=== PATIENT | female | born 1960 | race Caucasian/White ===

== ENCOUNTER → 2017-11-30 00:26 | Outpatient (CLI) | payer OTHER, MEDICARE, SELFPAY ==
--- NOTE | 2017-11-30 08:22 | DI.RPTCT_ITS ---
SYMPTOMS/DIAGNOSIS: PROFOUND WEIGHT LOSS, R63.4, ABD PAIN, R10.84 CT OF THE ABDOMEN AND PELVIS: Comparison is made with abdomen ultrasound dated . Images were performed from the lung bases through the ischial tuberosities after IV and oral contrast. There is artifact related to spinal hardware. The lung bases are clear. The liver, gallbladder, pancreas, adrenals and kidneys are unremarkable. The patient is status post splenectomy. The bladder appears normal. The uterus and ovaries have a postmenopausal appearance. Contrast is seen in small bowel and colon to the level of the splenic flexure. The descending and rectosigmoid colon are not yet opacified. There is a moderate quantity of stool in the descending and sigmoid colon. There is little surrounding fat. There is a question of diffuse wall thickening of the rectosigmoid. There is no evidence of a focal mass, adenopathy, free air or free fluid. IMPRESSION: Question of wall thickening of the rectosigmoid colon. There is limited evaluation due to lack of intra-abdominal fat and lack of contrast opacification.
[2017-11-30] MEDS: Omnipaque 350 MG/ML 100 ML BTL IJ (10:08)
[2017-11-30] MEDS: Omnipaque 350 MG/ML 50 ML BTL IJ (10:10)
[2017-11-30] MEDS: Breeza Beverage 473 ML BTL PO ×2 (10:11→10:12)
== END ==
PROVIDERS: PCP Family Medicine; Visit Provider Family Medicine
DX: R10.84 Generalized abdominal pain (principal); R63.4 Abnormal weight loss; K63.89 Other specified diseases of intestine; Z90.81 Acquired absence of spleen
CPT/HCPCS: 74177; J3490; Q9967

== ENCOUNTER → 2017-11-30 02:56 | Outpatient (CLI) | payer MEDICARE, OTHER, SELFPAY ==
[2017-11-30 13:17] LABS: Vitamin B12 > 1000 pg/mL (193-986)
== END ==
PROVIDERS: PCP Family Medicine; Visit Provider Family Medicine
DX: D51.9 Vitamin B12 deficiency anemia, unspecified (principal)
CPT/HCPCS: 36415; 82607

== ENCOUNTER 2018-01-20 14:06 | Outpatient (CLI) | payer MEDICARE, OTHER, SELFPAY ==
[2018-01-20 14:30] LABS: Absolute Basophil Count 0.03 k/cumm (0.0-0.2); Absolute Eosinophil Count 0.04 k/cumm (0.0-0.7); Absolute Lymphocyte Count 1.87 k/cumm (1.2-3.4); Absolute Monocyte Count 0.33 k/cumm (0.11-0.7); Absolute Neutrophil Count 2.44 k/cumm (1.2-6.7); Basophils % 0.6; Eosinophils % 0.8; HCT 39.8 % (36.0-46.0); HGB 13.1 g/dL (12.0-15.5); Lymphocytes % 39.7; Mean Corp. HGB Concentration 32.9 g/dL (32.0-36.0); Mean Corpuscular Hemoglobin 33.5 pg (27.0-33.0); Mean Corpuscular Volume 101.8 fL (80-95); Neutrophils % 51.9; Platelet Count 222 x1000/uL (130-400); RBC 3.91 m/cumm (4.00-5.20); RBC Distribution Width 14.8 % (11.7-14.6); White Blood Cell Count 4.71 k/cumm (4.4-10.8)
[2018-01-20 15:07] LABS: ESR 16 MM/HR (0-30)
[2018-01-20 15:24] LABS: ALT 17 U/L (12-78); AST 13 U/L (15-37); Albumin 3.7 g/dL (3.4-5.0); Alkaline Phosphatase 59 U/L (46-116); CREATININE 0.75 mg/dL (0.55-1.02)
== END 2018-01-20 14:26 ==
PROVIDERS: PCP Family Medicine; Visit Provider Internal Medicine Rheumatology
DX: M06.4 Inflammatory polyarthropathy (principal); Z79.899 Other long term (current) drug therapy
CPT/HCPCS: 36415; 85652; 82040; 82565; 84075; 84450; 84460; 85025; 86140

== ENCOUNTER 2018-04-26 01:23 | Outpatient (CLI) | payer MEDICARE, OTHER, SELFPAY ==
--- NOTE | 2018-04-26 13:00 | SATEXT_ITS ---
Assessment: Dorys presents for nutritional counseling for unintentional weight loss. She was 145 lbs 18 months ago. She reports that she also started Topomax 18 months ago for migraines. Her current weight is 87 lbs. She is 65. Her dietary recall shows that she eats toast or a bagel in the morning, then a grilled cheese, and for supper steak, potato, veggie. She snacks on ice cream, peanuts, and pistachios. She drinks one Ensure daily Her estimated energy needs for weight gain are 1200 kcals/day-1400 kcals/day based on 30-35 kcal/kg/day. Her estimated protein needs are 32g -40g/day based on 0.8-1.0 g/kg/day Nutritional Diagnosis: Underweight related to possible physiologic causes as well as a history of inadequate intake of calories as evidenced by BMI of 15 kg/m2 Intervention: We discussed ways to be sure she get 1200- 1400 kcals/day. Provided examples. Provided written materials on high calorie, high protein nutrition therapy. Encouraged Dorys to add one to two more Ensures to her day and/or other high calorie, high protein liquid nutrition. With regard to her unintentional weight loss that coincided with her starting Topomax, I suggested to her that she speak to her pharmacist or health care provider about the issue as weight loss can be a side effect of Topomax. I did say however, that medications were outside of my scope of practice. Monitoring and Evaluation: 1. Dorys will monitor her intake and her weight. She will evaluate her nutrition care plan accordingly. 2. She will follow up with me as needed. She has my contact information and is encouraged to check in with me with any questions or concerns regarding her nutrition therapy for underweight. Total time face to face: 20 minutes Thank you for the referral.
== END 2018-04-26 01:43 ==
PROVIDERS: PCP Family Medicine; Visit Provider Dietitian, Registered
DX: R63.4 Abnormal weight loss (principal); Z71.3 Dietary counseling and surveillance
CPT/HCPCS: 97802

== ENCOUNTER 2018-07-19 15:43 | Outpatient (CLI) | payer MEDICARE, OTHER, SELFPAY ==
[2018-07-19 16:09] LABS: Abs Immature Grans 0.01 k/cumm (0.0-0.09); Absolute Basophil Count 0.03 k/cumm (0.0-0.2); Absolute Eosinophil Count 0.04 k/cumm (0.0-0.7); Absolute Lymphocyte Count 2.32 k/cumm (1.2-3.4); Absolute Monocyte Count 0.24 k/cumm (0.11-0.7); Absolute Neutrophil Count 3.43 k/cumm (1.2-6.7); Basophils % 0.5; Eosinophils % 0.7; HCT 35.5 % (36.0-46.0); HGB 11.9 g/dL (12.0-15.5); Immature Grans % 0.2; Lymphocytes % 38.2; Mean Corp. HGB Concentration 33.5 g/dL (32.0-36.0); Mean Corpuscular Hemoglobin 34.5 pg (27.0-33.0); Mean Corpuscular Volume 102.9 fL (80-95); Mean Platelet Volume 9.8 fL (8.0-11.0); Neutrophils % 56.4; Platelet Count 269 x1000/uL (130-400); RBC 3.45 m/cumm (4.00-5.20); RBC Distribution Width 15.7 % (11.7-14.6); White Blood Cell Count 6.07 k/cumm (4.4-10.8)
[2018-07-19 17:03] LABS: ALT 15 U/L (12-78); AST 15 U/L (15-37); Albumin 3.4 g/dL (3.4-5.0); Alkaline Phosphatase 58 U/L (46-116); Anion Gap 9.4 mmol/L (3-11); BUN 8 mg/dL (7-18); Bilirubin, Total 0.3 mg/dL (0.2-1.0); C-Reactive Protein 0.49 mg/dL (0.0-0.3); CO2 26.6 mmol/L (21.0-32.0); CREATININE 0.76 mg/dL (0.55-1.02); Calcium 8.9 mg/dL (8.5-10.1); Chloride 109 mmol/L (98-107); Glucose 84 mg/dL (70-100); Potassium 4.3 mmol/L (3.5-5.1); Sodium 145 mmol/L (136-145); Total Protein 6.7 g/dL (6.4-8.2)
== END 2018-07-19 16:03 ==
PROVIDERS: PCP Family Medicine; Visit Provider Internal Medicine Rheumatology
DX: M06.4 Inflammatory polyarthropathy (principal); Z79.899 Other long term (current) drug therapy
CPT/HCPCS: 36415; 80053; 85025; 86140

== ENCOUNTER 2019-01-27 02:45 | Outpatient (CLI) | payer MEDICARE, OTHER, SELFPAY ==
[2019-01-27 13:04] LABS: Abs Immature Grans 0.01 k/cumm (0.0-0.09); Absolute Basophil Count 0.03 k/cumm (0.0-0.2); Absolute Eosinophil Count 0.13 k/cumm (0.0-0.7); Absolute Lymphocyte Count 1.92 k/cumm (1.2-3.4); Absolute Monocyte Count 0.52 k/cumm (0.11-0.7); Absolute Neutrophil Count 2.98 k/cumm (1.2-6.7); Basophils % 0.5; Eosinophils % 2.3; HCT 38.4 % (36.0-46.0); HGB 12.6 g/dL (12.0-15.5); Immature Grans % 0.2; Lymphocytes % 34.3; Mean Corp. HGB Concentration 32.8 g/dL (32.0-36.0); Mean Corpuscular Volume 103.5 fL (80-95); Monocytes % 9.3; Neutrophils % 53.4; Platelet Count 258 x1000/uL (130-400); RBC 3.71 m/cumm (4.00-5.20); White Blood Cell Count 5.59 k/cumm (4.4-10.8)
[2019-01-27 13:21] LABS: ALT 10 U/L (14-59); AST 13 U/L (15-37); Albumin 3.3 g/dL (3.4-5.0); Alkaline Phosphatase 57 U/L (46-116); Anion Gap 5.6 mmol/L (3-11); BUN 9 mg/dL (7-18); Bilirubin, Total 0.3 mg/dL (0.2-1.0); C-Reactive Protein 0.28 mg/dL (0.0-0.3); CO2 31.4 mmol/L (21.0-32.0); CREATININE 0.79 mg/dL (0.55-1.02); Calcium 8.7 mg/dL (8.5-10.1); Chloride 105 mmol/L (98-107); Glucose 79 mg/dL (70-100); Potassium 4.4 mmol/L (3.5-5.1); Sodium 142 mmol/L (136-145); Total Protein 6.8 g/dL (6.4-8.2)
== END 2019-01-27 03:05 ==
PROVIDERS: PCP Family Medicine; Visit Provider Internal Medicine Rheumatology
DX: M06.4 Inflammatory polyarthropathy (principal); Z79.899 Other long term (current) drug therapy
CPT/HCPCS: 36415; 80053; 85025; 86140

== ENCOUNTER 2019-06-22 13:34 | Outpatient (CLI) | payer MEDICARE, OTHER, SELFPAY ==
[2019-06-22 14:00] LABS: Absolute Basophil Count 0.03 k/cumm (0.0-0.2); Absolute Eosinophil Count 0.05 k/cumm (0.0-0.7); Absolute Lymphocyte Count 2.07 k/cumm (1.2-3.4); Absolute Monocyte Count 0.33 k/cumm (0.11-0.7); Absolute Neutrophil Count 2.91 k/cumm (1.2-6.7); Basophils % 0.6; Eosinophils % 0.9; HCT 39.4 % (36.0-46.0); HGB 13.1 g/dL (12.0-15.5); Lymphocytes % 38.4; Mean Corp. HGB Concentration 33.2 g/dL (32.0-36.0); Mean Corpuscular Hemoglobin 33.5 pg (27.0-33.0); Mean Corpuscular Volume 100.8 fL (80-95); Mean Platelet Volume 9.6 fL (8.0-11.0); Monocytes % 6.1; Platelet Count 264 x1000/uL (130-400); RBC 3.91 m/cumm (4.00-5.20); RBC Distribution Width 15.1 % (11.7-14.6); White Blood Cell Count 5.39 k/cumm (4.4-10.8)
[2019-06-22 14:56] LABS: ALT 16 U/L (14-59); AST 20 U/L (15-37); Albumin 3.7 g/dL (3.4-5.0); Alkaline Phosphatase 53 U/L (46-116); BUN 10 mg/dL (7-18); Bilirubin, Total 0.4 mg/dL (0.2-1.0); C-Reactive Protein 0.28 mg/dL (0.0-0.3); CREATININE 0.81 mg/dL (0.55-1.02); Calcium 9.3 mg/dL (8.5-10.1); Chloride 102 mmol/L (98-107); Glucose 92 mg/dL (74-106); Potassium 4.1 mmol/L (3.5-5.1); Sodium 140 mmol/L (136-145); Total Protein 7.1 g/dL (6.4-8.2)
== END 2019-06-22 13:54 ==
PROVIDERS: PCP Family Medicine; Visit Provider Internal Medicine Rheumatology
DX: M06.4 Inflammatory polyarthropathy (principal); Z79.899 Other long term (current) drug therapy
CPT/HCPCS: 36415; 80053; 85025; 86140

== ENCOUNTER 2020-01-10 09:12 | Outpatient (CLI) | payer MEDICARE, OTHER, SELFPAY ==
[2020-01-10 12:51] LABS: Abs Immature Grans 0.01 10^3/uL (0.0-0.06); Absolute Basophil Count 0.06 10^3/uL (0.0-0.2); Absolute Eosinophil Count 0.07 10^3/uL (0.0-0.7); Absolute Monocyte Count 0.44 10^3/uL (0.1-0.8); Absolute Neutrophil Count 2.79 10^3/uL (1.2-6.7); Basophils % 1.3; Eosinophils % 1.5; HCT 40.6 % (36.0-46.0); HGB 13.5 g/dL (11.2-15.7); Immature Grans % 0.2; Lymphocytes % 27.8; MCH 33.3 pg (27.0-33.0); MCHC 33.3 % (32.0-36.0); MCV 100.2 fL (80-95); Monocytes % 9.4; Neutrophils % 59.8; Nucleated RBC 0 %; Platelet Count 276 10^3/uL (130-400); RBC 4.05 10^6/uL (3.93-5.22); RDW 15.4 % (11.7-14.6); WBC 4.67 10^3/uL (4.4-10.8)
[2020-01-10 13:02] LABS: ALT 17 U/L (14-59); AST 17 U/L (15-37); Albumin 3.7 g/dL (3.4-5.0); Alkaline Phosphatase 57 U/L (46-116); Anion Gap 5.4 mmol/L (3-11); BUN 15 mg/dL (7-18); Bilirubin, Total 0.4 mg/dL (0.2-1.0); C-Reactive Protein 0.21 mg/dL (0.0-0.3); CO2 32.6 mmol/L (21.0-32.0); CREATININE 0.84 mg/dL (0.55-1.02); Calcium 9.4 mg/dL (8.5-10.1); Chloride 101 mmol/L (98-107); Glucose 109 mg/dL (74-106); Potassium 3.5 mmol/L (3.5-5.1); Sodium 139 mmol/L (136-145); Total Protein 7.5 g/dL (6.4-8.2)
== END 2020-01-10 09:32 ==
PROVIDERS: PCP Family Medicine; Visit Provider Internal Medicine Rheumatology
DX: M06.4 Inflammatory polyarthropathy (principal); Z79.899 Other long term (current) drug therapy
CPT/HCPCS: 36415; 80053; 85025; 86140

== ENCOUNTER 2020-02-07 08:27 | Outpatient (CLI) | payer MEDICARE, OTHER, SELFPAY ==
[2020-02-09 16:44] LABS: Patient Race White; SARS-CoV-2 RNA Undetected (Undetected); SARS-CoV-2 Specimen Source Nasal
== END 2020-02-07 08:47 ==
PROVIDERS: PCP Family Medicine; Visit Provider Family Medicine
DX: Z20.828 Contact with and (suspected) exposure to other viral communicable diseases (principal)
CPT/HCPCS: U0003

== ENCOUNTER 2020-02-28 17:09 | Outpatient (CLI) | payer MEDICARE, OTHER, SELFPAY ==
--- NOTE | 2020-02-28 08:00 | DI.RAD_ITS ---
EXAM: XR CHEST 2V PA LATERAL CLINICAL HISTORY: smoker/ABNL wgt loss,R63.4 TECHNIQUE: 2D digital imaging was performed. COMPARISON: CR CHEST 2 VIEWS PA,LAT from 08/14/2010 FINDINGS: MEDIASTINUM: Normal. HEART: Normal. PULMONARY VASCULATURE: Normal. LUNGS: Clear. Hyperinflated lungs suggesting underlying COPD. PLEURAL SPACE: No pleural effusion or pneumothorax. BONE:Within normal limits for the patient's age. Stable right convex thoracic scoliosis. Stable sin gle orthopedic zita spanning the thoracic and lumbar spine. OTHER FINDINGS:Stable nerve stimulating device in the thoracic spine. Surgical clips are again seen in the left upper quadrant of the abdomen. IMPRESSION: No acute pulmonary findings. DATA REPOSITORY: RADIATION DOSE DELIVERED:
== END 2020-02-28 17:29 ==
PROVIDERS: PCP Family Medicine; Visit Provider Family Medicine
DX: R63.4 Abnormal weight loss (principal); F17.210 Nicotine dependence, cigarettes, uncomplicated
CPT/HCPCS: 71046

== ENCOUNTER 2020-03-20 14:40 | Observation (INO) | payer MEDICARE, OTHER, SELFPAY ==
[2020-03-20] VITALS (69 sets, daily range): BP systolic 84–165; BP diastolic 58–150; PULSE 68–132; RESP 1–28; TEMP 36.3–36.5; O2SAT 91–100
--- NOTE | 2020-03-20 15:00 | RT.EKG_ITS ---
APPROVED REPORT Exam: Resting ECG Patient Location: E HR:91 bpm ECG Measurements Heart Rate 91 AXIS MN 139 P 77 QRSd 80 QRS 84 QT 406 T 58 QTc 500 Conclusion Sinus rhythm...normal P axis, V-rate 60- 99 Left ventricular hypertrophy...multiple voltage criteria Anterior infarct, old...Q >40mS, abnormal ST-T, V2-V5. 2mm ST elevation in V3? I have reviewed and interpreted ECG and agree with software generated interpretation.
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
[2020-03-20 16:37] LABS: Abs Immature Grans 0.03 10^3/uL (0.0-0.06); Absolute Basophil Count 0.04 10^3/uL (0.0-0.2); Absolute Lymphocyte Count 1.87 10^3/uL (1.2-3.4); Absolute Monocyte Count 0.51 10^3/uL (0.1-0.8); Absolute Neutrophil Count 5.36 10^3/uL (1.2-6.7); Basophils % 0.5; HCT 41.1 % (36.0-46.0); HGB 14.2 g/dL (11.2-15.7); Immature Grans % 0.4; Lactate 1.7 mmol/L (0.6-1.4); Lymphocytes % 23.9; MCH 33.1 pg (27.0-33.0); MCHC 34.5 % (32.0-36.0); MCV 95.8 fL (80-95); MPV 10.1 fL (8.0-11.0); Monocytes % 6.5; Neutrophils % 68.7; Nucleated RBC 0 %; Platelet Count 276 10^3/uL (130-400); RBC 4.29 10^6/uL (3.93-5.22); RDW-SD 48.3 fL; WBC 7.81 10^3/uL (4.4-10.8)
[2020-03-20 16:50] LABS: INR 1.2 (0.9-1.1); PTT Activated 25.6 sec (21.0-27.5); Prothrombin Time 11.8 sec (9.3-11.0)
--- NOTE | 2020-03-20 17:00 | DI.CT_ITS ---
EXAM: CT CHEST PE ABD PELVIS W CLINICAL HISTORY: cough, sob, weight loss TECHNIQUE: CT examination of the chest, abdomen, and pelvis was performed utilizing intravenous inf usion of 100 cc of Omnipaque 350. FINDINGS: Note is made of spinal fixation hardware in the thoracolumbar region and lumbosacral junction and the re is a spinal stimulator in place in the lumbar region as well. There is a moderate biconvex thorac olumbar scoliosis. There are changes of pulmonary scarring most marked in the right middle lobe. Lungs are otherwise pr edominantly clear. Minimal patchy ground-glass opacities in right lung base, nonspecific, acute vers us chronic.. No pleural effusion. No pleural based mass. No mediastinal or hilar adenopathy. No axillary or supraclavicular adenopathy. Tracheobronchial anatoliy e appears intact. No evidence of pulmonary embolic disease. Unremarkable appearance of thoracic aorta and major branch vessels except for moderate calcific atheromatous changes.. The liver appears normal with no focal hepatic lesion identified. Spl prior splenectomy noted. Pancreas appears intact. Adrenals appear normal. There is bilateral nonobstructing nephrolithiasis. There is an apparent small simple cyst of the rig ht kidney. No evidence of urinary tract obstruction.. Distal abdominal aorta is not ideally visualized due to artifact from spinal hardware, however there appears to have been an aorto bi femoral graft. Proximal right and left grafts are poorly visualized but there is grossly intact flow through this region and into the common femoral arteries bilaterall y. Appearance is similar to appearance on prior CT of November 2017. No focal bowel pathology. Appendix is normal. There appears to be significant wall thickening of th e rectosigmoid raising the possibility of colitis. No evidence of obstruction. Moderate quantity of fecal material throughout the colon.. No abdominal or pelvic adenopathy. No significant abdominal wall hernia. IMPRESSION: Wall thickening of the distal colon as described above, suspicious for colitis. No additional focal acute finding. RADIATION DOSE DELIVERED: 622.72mGy.cm Total DLP 622.72mGy.cm Total DLP
[2020-03-20 17:05] LABS: ALT 12 U/L (14-59); AST 26 U/L (15-37); Albumin 3.5 g/dL (3.4-5.0); Alkaline Phosphatase 50 U/L (46-116); Anion Gap 6.5 mmol/L (3-11); BUN 21 mg/dL (7-18); Bilirubin, Total 0.7 mg/dL (0.2-1.0); CO2 28.5 mmol/L (21.0-32.0); CREATININE 0.91 mg/dL (0.55-1.02); Calcium 9.3 mg/dL (8.5-10.1); Chloride 100 mmol/L (98-107); Glucose 109 mg/dL (74-106); Magnesium 1.9 mg/dL (1.8-2.4); Potassium 4.4 mmol/L (3.5-5.1); Sodium 135 mmol/L (136-145); Total Protein 7.7 g/dL (6.4-8.2)
[2020-03-20 17:09] LABS: Troponin I 0.62 ng/mL (<0.06)
[2020-03-20] MEDS: Normal Saline Flush 10 ML SYR IVP (18:33)
[2020-03-20] MEDS: Omnipaque 350 MG/ML 100 ML BTL IJ (18:34)
[2020-03-20] MEDS: Normal Saline - Diluent 50 ML VIAL IV (18:34)
--- NOTE | 2020-03-20 18:45 | RT.EKG_ITS ---
APPROVED REPORT Exam: Resting ECG Patient Location: E HR:79 bpm ECG Measurements Heart Rate 79 AXIS NC 153 P 79 QRSd 75 QRS 82 QT 426 T 79 QTc 490 Conclusion Sinus rhythm...normal P axis, V-rate 60- 99 Probable left atrial enlargement...P >50mS, <-0.10mV V1 Left ventricular hypertrophy...multiple voltage criteria I have reviewed and interpreted ECG and agree with software generated interpretation.
[2020-03-20] MEDS: Albuterol/Ipratropium 3 ML UPD VIAL UPD ×2 (18:51→21:11)
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
[2020-03-20 20:26] LABS: Troponin I 0.56 ng/mL (<0.06)
[2020-03-20] MEDS: Aspirin 325 MG TAB PO (20:43)
[2020-03-20] MEDS: Clopidogrel 300 MG TAB PO (20:43)
[2020-03-20] MEDS: diazePAM 5 MG TAB PO (23:02)
[2020-03-20] MEDS: traZODone 50 MG TAB PO (23:02)
[2020-03-20] MEDS: oxyCODONE 5 mg/Acetaminophen 325 mg TAB 1 TAB PO (23:12)
[2020-03-21] VITALS (30 sets, daily range): BP systolic 107–149; BP diastolic 56–108; PULSE 60–78; RESP 8–27; TEMP 36.3–36.5; O2SAT 93–98
[2020-03-21 04:40] LABS: PTT Activated 57.7 sec (21.0-27.5)
[2020-03-21] MEDS: oxyCODONE 5 mg/Acetaminophen 325 mg TAB 1 TAB PO ×3 (06:21→18:59)
[2020-03-21 06:42] LABS: Troponin I 0.45 ng/mL (<0.06)
[2020-03-21] MEDS: Lactobacillus Acidophilus CAP 1 CAP PO (07:48)
[2020-03-21] MEDS: clonazePAM 0.5 MG TAB 0.25 MG PO (07:48)
[2020-03-21] MEDS: Venlafaxine 37.5 MG CAPCR 75 MG PO (07:48)
[2020-03-21] MEDS: Folic Acid 1 MG TAB 2 MG PO (07:48)
[2020-03-21] MEDS: Metoprolol CR 100 MG TABCR PO (07:48)
[2020-03-21 09:27] LABS: NT-proBNP 1158 pg/mL (<300)
--- NOTE | 2020-03-21 10:13 | PDOC.CMIN ---
- If Service Date Differs Date of service: 03/21/20 Time of Service: 10:13 Care Management Initial Assess REASON FOR HOSPITALIZATION:: Chest Pain PAST MEDICAL HISTORY/PAST SURGICAL HISTORY:: Medical History. Elevated Triponin, chronic chest pain, dyspnea on exertion, chest pain on exertion, abnormal weight loss, insomnia, migraine, tobacco use disorder, neck pain, lumbago, IBS, idiopathic scoliosis, fatigue, discoid lupus erythematosus, depressive disorder, chronic pain syndrome, B12 deficiency. Abnormal Pap smear of anus. + HPV. Albarran-Marco A syndrome. Vaginal high risk HPV DNA test positive. Surgical History. History of orthopedic surgery. History of splenectomy. SPIN DEVICE. Chu Ananth, 1980; 2003 ananth placed; bone graft L4-5. Splenomegaly (~1999). ITP PREVIOUS FUNCTIONAL STATUS/SOCIAL/FAMILY SUPPORTS:: Dorys lives in [place] with her , Dyllan. 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 She has three children, only one of which lives nearby. She has one five year old grandchild, who she would like to spend more time with, but due to Covid 19, she has not been able to recently. She is independent at baseline. CURRENT FUNCTIONAL STATUS:: Dorys was sitting up in bed when CM met with her. She stated that she was ok. She had just met with the Business Excellence Leader, who recommended that she be transferred for cardiac catheterization, which will likely happen tomorrow. She is agreeable to transfer. She was pleasant and forthcoming with information. CM will continue to follow. ADVANCE DIRECTIVES:: None on file. Dorys stated that she has filled them out, and has Dyllan, her , listed as agent. Has patient been provided with info about the portal/API?: Yes Did the patient sign up for the portal?: Yes (previously signed up) CODE STATUS:: Full Code INSURANCE COVERAGE / FINANCIAL ISSUES:: MCR, MVP CURRENT HOME/COMMUNITY SERVICES/EQUIPMENT:: No current equipment or services in the community. PRIMARY CARE PHYSICIAN:: Benny Resendez POTENTIAL DISCHARGE NEEDS:: Evaluations for further needs, follow up appointments PATIENT/FAMILY EDUCATION NEEDS:: Review discharge instructions regarding activity levels and medications, discussion of self care needs including ask me three. ANTICIPATED BARRIERS TO DISCHARGE:: None identified at this time. TRANSPORTATION:: Via private vehicle by family. PLAN:: Dorys continues to be monitored at ICU level of care. Anticipate Dorys will return home once medically cleared. She will be driven home by her via private vehicle. She will follow up with her PCP and discharge plan of care. CM will continue to follow.
--- NOTE | 2020-03-21 10:31 | PHA.REVIEW ---
Pharmacy Admission Review - Admission Clinical Review (Last Reviewed 03/20/20 @ 20:07 by Maninder Castillo MD) Elevated troponin (Acute) Chronic chest pain (Acute) Dyspnea on exertion (Acute) Chest pain on exertion (Acute) bupropion Allergy (Intermediate, Verified 03/13/20 14:11) Hives citalopram Allergy (Intermediate, Verified 03/13/20 14:11) verapamil Allergy (Intermediate, Verified 03/13/20 14:11) Hives Corticosteroids (Glucocorticoids) Adverse Reaction (Verified 03/13/20 14:11) Sulfa (Sulfonamide Antibiotics) Adverse Reaction (Verified 03/13/20 14:11) Height 5 ft 4.17 in Weight 36.3 kg - Comments Comments/Follow Ups: Treating as NSTEMI -- ASA, plavix, and heparin gtt given; patient does have a history of COPD only requiring albuterol per external pharmacy records - duonebs ordered PRN; cardio consult today; BMI of 13.7 - Renal Dosing Renal Dosing: BUN 21 mg/dL (7-18) H 03/20/20 16:27 Creatinine 0.91 mg/dL (0.55-1.02) 03/20/20 16:27 Medications needing adjustments: Reviewed List of meds needing interventions: eCrCl 37.6ml/min - current orders ok - Anticoagulation Anticoagulation: Hgb 14.2 g/dL (11.2-15.7) 03/20/20 16:27 Hct 41.1 % (36.0-46.0) 03/20/20 16:27 Plt Count 276 10^3/uL (130-400) 03/20/20 16:27 INR 1.2 (0.9-1.1) H 03/20/20 16:27 Creatinine 0.91 mg/dL (0.55-1.02) 03/20/20 16:27 DVT Prohphylaxis: Reviewed Therapeutic Anticoagulation: Reviewed Medications: Heparin - Opiate Usage Evaluate Pain Scale/Pains Meds: Reviewed (oxy/apap 5-325 PRN) Scheduled Bowel Reg ordered if on Opiates?: No - Relevant Labs Sodium 135 mmol/L (136-145) L 03/20/20 16:27 Potassium 4.4 mmol/L (3.5-5.1) 03/20/20 16:27 Chloride 100 mmol/L (98-107) 03/20/20 16:27 Magnesium 1.9 mg/dL (1.8-2.4) 03/20/20 16:27 Electrolytes, C-Reactive P, ESR: Reviewed - DM Control DM Control: Glucose 109 mg/dL (74-106) H 03/20/20 16:27 Insulin Dosing: N/A - Heart Failure/NV Heart Failure/NV: Troponin I 0.45 ng/mL (<0.06) H* 03/21/20 06:15 NT-Pro-B Natriuret Pep 1158 pg/mL (<300) H 03/21/20 06:15 EF%, NINI's, B-Blockers, Diuretics: Reviewed (Metoprolol Succ 100mg daily) - BP Control BP Control: Blood Pressure 149/82 Blood Pressure 119/56 Blood Pressure 107/69 Blood Pressure 120/67 Blood Pressure 120/76 Blood Pressure 118/64 - Qtc Review If Elevated: Reviewed List meds needing interventions: QTc 500 on admission - caution of new orders that could prolong QT - IV to PO Switch IV Medications: Reviewed - Home Meds Home Med List reviewed: Reviewed Relevent Home Meds Not ordered & why?: Vit D, all others ordered - Current meds Current Medication Order Review: Intervened (Venlafaxine was changed to ER but should be IR tablet per review of pharmacy records - changed order accordingly)
[2020-03-21 10:52] LABS: Source Nasopharynx
[2020-03-21 11:51] LABS: COVID-19 PCR Negative (Negative); Influenza A PCR Negative (Negative); Influenza B PCR Negative (Negative); RSV PCR Negative (Negative)
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
--- NOTE | 2020-03-21 15:33 | DI.US_ITS ---
APPROVED REPORT EXAM: Comprehensive 2D, Doppler, and color-flow Echocardiogram Patient Location: In-Patient Room/Bed: [id number] Research Intern: Oneida Mack RDCS (AE) Indications: Chest pain, Elevated troponin, SOB Other Information Technically limited study due to body habitus. Conclusion Technically difficult study Concentric left ventricular hypertrophy estimated ejection fraction 55 to 60%. No segmental wall mot ion abnormalities were identified Right ventricle grossly normal in size, unable to assess systolic function The left atrium is mildly dilated. The right atrium is normal in size There are no structural or hemodynamically significant valvular abnormalities Wall motion Left Ventricle The left ventricle is normal size. The left ventricular systolic function is normal. The left ventric ular ejection fraction is within the normal range. Moderate concentric left ventricular hypertrophy. There is normal LV segmental wall motion. There is no ventricular septal defect visualized. LVEF is 5 5-60%. Right Ventricle Ventricle appears grossly normal in size Right ventricular systolic function could not be assessed. T he RVSP is 23.2mmHg. Atria Left atrium is mildly dilated. The right atrium size is normal. The interatrial septum is intact with no evidence for an atrial septal defect. Aortic Valve The aortic valve is normal in structure. Aortic valve is trileaflet. There is no aortic valvular sten osis. No aortic regurgitation is present. Mitral Valve The mitral valve is normal in structure. No evidence of mitral valve stenosis. Trace mitral regurgita tion. Tricuspid Valve The tricuspid valve is normal in structure. There is no tricuspid valve stenosis. Mild tricuspid regu rgitation. Pulmonic Valve The pulmonary valve is normal in structure. There is no pulmonic valvular stenosis. There is no pulmo michele valvular regurgitation. Great Vessels The aortic root is normal in size. Ascending aorta is not well visualized. Aortic arch is not well vi sualized. IVC is normal in size and collapses >50% with inspiration. Pericardium There is no pericardial effusion. 2D Dimensions IVSD d PLAX 1.11 cm F: 0.6-1.0 LV Vol A2C d MOD 66.7 mL LVPW d PLAX 1.11 cm F: 0.6 - 1.0 LV Vol A4C d MOD 58.8 mL LVID d PLAX 3.51 cm F: 3.8 - 5.2 LA vol/ BSA A4C s A-L 39.7 mL/m2 LVDs 2.50 cm F: 2.2 - 3.5 LA Area A4C s MOD 18.22 cm2 Ao Root d 2.59 cm F: 2.7 - 3.3 LV EF A4C MOD 49.6 % RA Area A4C 7.96 cm2 LV EF A2C MOD 53.6 % RA Vol/ BSA A4C s A-L 11.3 mL/m2 LV EF Biplane MOD 48.7 % LV EF Teichholz 56.0 % SV 30.69 mL LVEF (Gomes's) 48.69 % F: 54 - 74 SV Index 23.16 mL/m2 LV Volume 55.30 mL F: 46 - 106 LV Volume Index 41.89 mL/m2 F: 29 - 61 LV Vol Biplane MOD 63.0 mL FS 28.45 % LV Diastology MV E' medial 0.053 (>0.07 m/s) E/A Ratio 1.0 LV E/e MED 12.00 (<14) MV E Vmax 0.64 (0.4-1.3 m/s) MV E' lateral 0.055 (>0.1 m/s) MV A Vmax 0.65 (0.4-1.3 m/s) LV E/e LAT 11.45 (<14) MV E/A Ratio 0.91 MV E/E' medial 12.00 MV E/E' lateral 11.47 Aortic Valve LVOT Area 2.99 cm2 AoV Area Vmax 2.45 cm2 LVOT Vmax 1.01 m/s AoV Area/ BSA (Vmax) 1.85 cm2/m2 LVOT Mean Nikunj. 0.65 m/s ERWIN Mean Nikunj. 2.09 cm2 LVOT Peak Grad 4.1 mmHg ERWIN Mean Nikunj. Index 1.58 cm2/m2 LVOT Mean Grad 2.0 mmHg LVOT VTI 0.180 m LVOT Diam s 1.95 cm AoV Vmax 1.23 m/s Velocity Ratio 0.82 AoV Mean Nikunj. 0.93 m/s AoV Peak Grad 6.1 mmHg LVOT SV 53.68 mL AoV Mean Grad 3.8 mmHg AoV VTI 0.231 m AoV Area VTI 2.32 cm2 AoV Area/ BSA (VTI) 1.75 cm/m2 Mitral Valve MV DT 235 (160-240 msec) MV PHT 68 msec MV Area PHT 3.23 cm2 Pulmonary Valve PV Vmax 0.93 (0.5-1.5 m/s) RVOT Peak Gr. 2.59 mmHg PV Peak Grad 3.5 mmHg RVOT Mean Gr. 1.20 mmHg PV Mean Grad 1.8 mmHg RVOT VTI 0.162 m PV VTI 0.200 m RVOT Vmax 0.80 m/s Tricuspid Valve TR Peak Grad 20.2 mmHg TR Vmax 2.25 m/s RA Pressure 3.00 mmHg RVSP (TR) 23.2 mmHg
--- NOTE | 2020-03-21 15:38 | W.PM.PROGNOT ---
Date of Service Date of service: 03/21/20 Time of Service: 15:39 Assessment and Plan Assessment and plan (1) Elevated troponin: Status: Acute Assessment and plan: Cardiology evaluation appreciated. She has been accepted at [facility] when bed available for cardiac catheterization. Planned transfer tomorrow. If bed should become unavailable, OK to proceed with stress testing here tomorrow. Echocardiogram performed; reading pending. (2) Chest pain on exertion: Status: Acute Assessment and plan: Has a component of chronic CP. Now with waxing and waning pain. Will try a nitro SL if pain is 5/10 or greater. (3) Abnormal weight loss: Status: Acute Assessment and plan: Unclear etiology. Outpt w/u IBS with constipation may be a large factor. Was doing better and eating well when on Linzesse but it is not covered by her insurance. (4) Tobacco use disorder: Status: Chronic Assessment and plan: Offer nicotine replacement should she desire. Subjective Subjective Patient reports: no new complaints, still having pain (central CP of 3-5/10.), tolerating a regular diet and afebrile; denies nausea, vomiting and shortness of breath Exam Const General: cooperative and no acute distress Nutritional Appearance: cachectic Orientation: alert and oriented x3 Resp Effort & Inspection: normal respiratory effort Auscultation: clear to auscultation bilaterally Cardio Rate: regular rate Rhythm: regular rhythm Heart Sounds: S1 normal and S2 normal GI Palpation: soft and nontender Auscultation: normal bowel sounds Extrem General: no pedal edema and no calf tenderness Objective Last Vital Signs Temp 36.3 C L 03/21/20 12:45 Pulse 66 03/21/20 14:00 Resp 15 03/21/20 15:00 BP 146/108 H 03/21/20 14:00 Pulse Ox 97 03/21/20 15:00 Laboratory Results - last 24 hr 03/20/20 03/20/20 03/20/20 16:27 16:27 16:27 WBC 7.81 RBC 4.29 Hgb 14.2 Hct 41.1 MCV 95.8 H MCH 33.1 H MCHC 34.5 RDW 14.0 Plt Count 276 MPV 10.1 Immature Gran % 0.4 Neutrophils % 68.7 Lymphocytes % 23.9 Monocytes % 6.5 Eosinophils % 0.0 Basophils % 0.5 Nucleated RBC % 0 Absolute Neutrophils 5.36 Absolute Lymphocytes 1.87 Absolute Monocytes 0.51 Absolute Eosinophils 0.00 Absolute Basophils 0.04 PT INR APTT VBG Lactate 1.7 H Sodium 135 L Potassium 4.4 Chloride 100 Carbon Dioxide 28.5 Anion Gap 6.5 BUN 21 H Creatinine 0.91 Estimated GFR/1.73 m2 >= 60.00 Glucose 109 H Calcium 9.3 Magnesium 1.9 Total Bilirubin 0.7 AST 26 ALT 12 L Alkaline Phosphatase 50 Troponin I 0.62 H* NT-Pro-B Natriuret Pep Total Protein 7.7 Albumin 3.5 COVID-19 Source COVID-19 PCR Influenza Type A (PCR) Influenza Type B (PCR) RSV (PCR) 03/20/20 03/20/20 03/21/20 16:27 19:36 04:00 WBC RBC Hgb Hct MCV MCH MCHC RDW Plt Count MPV Immature Gran % Neutrophils % Lymphocytes % Monocytes % Eosinophils % Basophils % Nucleated RBC % Absolute Neutrophils Absolute Lymphocytes Absolute Monocytes Absolute Eosinophils Absolute Basophils PT 11.8 H INR 1.2 H APTT 25.6 57.7 H D VBG Lactate Sodium Potassium Chloride Carbon Dioxide Anion Gap BUN Creatinine Estimated GFR/1.73 m2 Glucose Calcium Magnesium Total Bilirubin AST ALT Alkaline Phosphatase Troponin I 0.56 H* NT-Pro-B Natriuret Pep Total Protein Albumin COVID-19 Source COVID-19 PCR Influenza Type A (PCR) Influenza Type B (PCR) RSV (PCR) 03/21/20 03/21/20 03/21/20 06:15 06:15 10:40 WBC RBC Hgb Hct MCV MCH MCHC RDW Plt Count MPV Immature Gran % Neutrophils % Lymphocytes % Monocytes % Eosinophils % Basophils % Nucleated RBC % Absolute Neutrophils Absolute Lymphocytes Absolute Monocytes Absolute Eosinophils Absolute Basophils PT INR APTT VBG Lactate Sodium Potassium Chloride Carbon Dioxide Anion Gap BUN Creatinine Estimated GFR/1.73 m2 Glucose Calcium Magnesium Total Bilirubin AST ALT Alkaline Phosphatase Troponin I 0.45 H* NT-Pro-B Natriuret Pep 1158 H Total Protein Albumin COVID-19 Source Nasopharynx COVID-19 PCR Negative Influenza Type A (PCR) Negative Influenza Type B (PCR) Negative RSV (PCR) Negative
[2020-03-21] MEDS: traZODone 50 MG TAB PO (19:00)
[2020-03-21 19:13] LABS: Vitamin D 25 Total 56.7 ng/ml (30-100)
[2020-03-21] MEDS: diazePAM 5 MG TAB PO (20:01)
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
[2020-03-21 23:55] LABS: COVID-19 RT-PCR UVMMC Result Negative (Negative)
== END 2020-03-21 20:31 | disposition short-term general hospital (02) ==
LOC: ER 20:39 → ICU 21:43
PROVIDERS: Family Medicine; Admitting Provider General Practice; Emergency Provider Physician Assistant; PCP Family Medicine; Visit Provider General Practice
DX: I21.4 Non-ST elevation (NSTEMI) myocardial infarction (principal); R63.4 Abnormal weight loss; Z68.1 Body mass index [BMI] 19.9 or less, adult; M32.9 Systemic lupus erythematosus, unspecified; L51.1 Stevens-Johnson syndrome; F17.210 Nicotine dependence, cigarettes, uncomplicated; K58.1 Irritable bowel syndrome with constipation
CPT/HCPCS: 36415; 71275; 74177; 80053; 82306; 93005; 94640; 99222; 99225; 99239; 99253; 99285; U0003; 83605; 83735; 83880; 84484; 85025; 85610; 85730; 93010; 93306; 99217; 99219; G0378; J3490; J7620

== ENCOUNTER → 2020-03-21 09:53 | Outpatient (BNVA) | payer MEDICARE, OTHER, SELFPAY | PROVIDERS: PCP Family Medicine; Referring Provider Family Medicine; Visit Provider Internal Medicine Cardiovascular Disease | DX: R69 Illness, unspecified (principal) ==

== ENCOUNTER 2020-08-29 02:13 | Outpatient (CLI) | payer OTHER, SELFPAY ==
[2020-08-29 11:22] LABS: HCT 41.2 % (36.0-46.0); HGB 13.3 g/dL (11.2-15.7); MCH 32.6 pg (27.0-33.0); MCHC 32.3 % (32.0-36.0); MPV 9.6 fL (8.0-11.0); Platelet Count 321 10^3/uL (130-400); RBC 4.08 10^6/uL (3.93-5.22); RDW 15.9 % (11.7-14.6); RDW-SD 59.6 fL; WBC 6.96 10^3/uL (4.4-10.8)
[2020-08-29 12:27] LABS: ALT 36 U/L (14-59); AST 26 U/L (15-37); Albumin 3.8 g/dL (3.4-5.0); Alkaline Phosphatase 67 U/L (46-116); Anion Gap 6.3 mmol/L (3-11); BUN 14 mg/dL (7-18); Bilirubin, Total 0.4 mg/dL (0.2-1.0); C-Reactive Protein 0.16 mg/dL (0.0-0.3); CO2 33.7 mmol/L (21.0-32.0); CREATININE 0.8 mg/dL (0.55-1.02); Calcium 9.4 mg/dL (8.5-10.1); Chloride 105 mmol/L (98-107); Glucose 99 mg/dL (74-106); Potassium 4.1 mmol/L (3.5-5.1); Sodium 145 mmol/L (136-145); Total Protein 7.5 g/dL (6.4-8.2)
[2020-08-29 12:36] LABS: TSH (W/Ref FT4) 1.24 uIU/mL (0.36-3.74)
== END 2020-08-29 02:14 | disposition home or self-care (01) ==
PROVIDERS: Physician Assistant; PCP Family Medicine; Visit Provider Internal Medicine Rheumatology
DX: M06.4 Inflammatory polyarthropathy (principal); Z79.899 Other long term (current) drug therapy
CPT/HCPCS: 36415; 80053; 85027; 84443; 86140

== ENCOUNTER 2020-09-10 07:12 | Outpatient (CLI) | payer OTHER, SELFPAY ==
[2020-09-10] MEDS: Albuterol HFA 18 GM 200 PUFF INH IH (14:26)
[2020-09-10] MEDS: Inhaler, Assist Device 1 EACH MC (14:26)
--- NOTE | 2020-09-10 17:32 | W.PFT ---
Date of service: 09/10/20 Time of Service: 01:12 Pulmonary Function Test Result Interpretation Spirometry: No evidence of obstructive airways disease, no bronchodilator response Lung Volumes: No evidence of restriction Diffusion Capacity: Moderately reduced which is mildly reduced when corrected to alveolar volume. Good patient effort Airway Pressure: Normal Impression Isolated moderate diffusion defect. This constellation of findings can be seen in early, developing interstitial lung disease or pulmonary hypertension, Clinical Correlation therefore is recommended.
== END 2020-09-10 07:13 | disposition home or self-care (01) ==
LOC: RT 07:13
PROVIDERS: PCP Nurse Practitioner Family; Visit Provider Internal Medicine Pulmonary Disease
DX: R06.02 Shortness of breath (principal); R94.2 Abnormal results of pulmonary function studies
CPT/HCPCS: 94060; 94618; 94726; 94729

== ENCOUNTER 2020-12-06 02:08 | Outpatient (CLI) | payer OTHER, SELFPAY ==
[2020-12-06 11:57] LABS: Abs Immature Grans 0.01 10^3/uL (0.0-0.06); Absolute Basophil Count 0.05 10^3/uL (0.0-0.2); Absolute Lymphocyte Count 2.39 10^3/uL (1.2-3.4); Absolute Monocyte Count 0.58 10^3/uL (0.1-0.8); Absolute Neutrophil Count 2.93 10^3/uL (1.2-6.7); Basophils % 0.8; Eosinophils % 3.2; HGB 12.7 g/dL (11.2-15.7); Immature Grans % 0.2; Lymphocytes % 38.8; MCH 31.4 pg (27.0-33.0); MCHC 32.6 % (32.0-36.0); MCV 96.3 fL (80-95); MPV 10.4 fL (8.0-11.0); Monocytes % 9.4; Neutrophils % 47.6; Nucleated RBC 0 %; Platelet Count 241 10^3/uL (130-400); RBC 4.05 10^6/uL (3.93-5.22); RDW 14.3 % (11.7-14.6); RDW-SD 49.9 fL; WBC 6.16 10^3/uL (4.4-10.8)
[2020-12-06 12:16] LABS: C-Reactive Protein 0.24 mg/dL (0.0-0.3)
[2020-12-06 12:22] LABS: ALT 23 U/L (14-59); AST 17 U/L (15-37); Albumin 3.6 g/dL (3.4-5.0); Alkaline Phosphatase 70 U/L (46-116); BUN 16 mg/dL (7-18); Bilirubin, Total 0.3 mg/dL (0.2-1.0); CREATININE 0.9 mg/dL (0.55-1.02); Calcium 9.3 mg/dL (8.5-10.1); Chloride 104 mmol/L (98-107); Glucose 92 mg/dL (74-106); Potassium 4.4 mmol/L (3.5-5.1); Sodium 140 mmol/L (136-145); Total Protein 7.2 g/dL (6.4-8.2)
== END 2020-12-06 02:09 | disposition home or self-care (01) ==
LOC: LOS 02:15
PROVIDERS: Physician Assistant; PCP Nurse Practitioner Family; Visit Provider Internal Medicine Rheumatology
DX: M06.4 Inflammatory polyarthropathy (principal); Z79.899 Other long term (current) drug therapy; R07.9 Chest pain, unspecified; J06.9 Acute upper respiratory infection, unspecified
CPT/HCPCS: 36415; 80053; 85027; 85025; 86140

== ENCOUNTER → 2021-05-19 10:15 | Outpatient (CLI) | payer OTHER, SELFPAY ==
--- NOTE | 2021-05-19 09:45 | DI.RAD_ITS ---
Exam(s) XR CHEST 2V PA LATERAL EXAM: XR CHEST 2V PA LATERAL CLINICAL HISTORY: Cough with abnormal lungs sounds, right, R09.89 TECHNIQUE: 2D digital imaging was performed. COMPARISON: CR XR CHEST 2V PA LATERAL from 02/28/2020 FINDINGS: MEDIASTINUM: Normal. HEART: Normal. PULMONARY VASCULATURE: Normal. LUNGS: Clear. PLEURAL SPACE: No pleural effusion or pneumothorax. BONE:Spinal zita. Scoliosis. Spinal stimulator leads. IMPRESSION: No acute abnormality. DATA REPOSITORY: RADIATION DOSE DELIVERED:
== END ==
PROVIDERS: PCP Nurse Practitioner Family; Visit Provider Nurse Practitioner Family
DX: R09.89 Other specified symptoms and signs involving the circulatory and respiratory systems (principal); R05.8 Other specified cough
CPT/HCPCS: 71046

== ENCOUNTER 2021-05-19 16:10 | Outpatient (REF) | payer OTHER, SELFPAY ==
[2021-05-21 15:35] LABS: COVID-19 RT-PCR UVMMC Result Positive (Negative)
== END 2021-05-19 16:11 | disposition home or self-care (01) ==
LOC: LBN 16:10
PROVIDERS: PCP Nurse Practitioner Family; Visit Provider Nurse Practitioner Family
DX: Z20.822 Contact with and (suspected) exposure to COVID-19 (principal)
CPT/HCPCS: U0003

== ENCOUNTER 2021-07-17 04:09 | Outpatient (CLI) | payer OTHER, SELFPAY | END 2021-07-17 04:10 | disposition home or self-care (01) | LOC: LBO 04:09 | PROVIDERS: PCP Nurse Practitioner Family; Visit Provider Internal Medicine Rheumatology ==

== ENCOUNTER 2021-07-17 09:26 | Outpatient (CLI) | payer OTHER, SELFPAY | END 2021-07-17 09:27 | disposition home or self-care (01) | LOC: DI.CARD 09:27 | PROVIDERS: PCP Nurse Practitioner Family; Visit Provider Internal Medicine Cardiovascular Disease | DX: R69 Illness, unspecified (principal) | CPT/HCPCS: 93010 ==

== ENCOUNTER 2021-08-13 04:14 | Outpatient (CLI) | payer OTHER, SELFPAY ==
[2021-08-13 12:44] LABS: Abs Immature Grans 0.02 10^3/uL (0.0-0.06); Absolute Basophil Count 0.05 10^3/uL (0.0-0.2); Absolute Eosinophil Count 0.15 10^3/uL (0.0-0.7); Absolute Monocyte Count 0.53 10^3/uL (0.1-0.8); Absolute Neutrophil Count 3.45 10^3/uL (1.2-6.7); Basophils % 0.7; Eosinophils % 2.1; HCT 38.9 % (36.0-46.0); HGB 12.5 g/dL (11.2-15.7); Immature Grans % 0.3; MCH 32.3 pg (27.0-33.0); MCHC 32.1 % (32.0-36.0); MCV 100.5 fL (80-95); MPV 10.7 fL (8.0-11.0); Monocytes % 7.6; Neutrophils % 49.3; Platelet Count 252 10^3/uL (130-400); RBC 3.87 10^6/uL (3.93-5.22); RDW 15.2 % (11.7-14.6); RDW-SD 56.9 fL
[2021-08-13 13:08] LABS: ALT 63 U/L (14-59); AST 67 U/L (15-37); Albumin 3.6 g/dL (3.4-5.0); Alkaline Phosphatase 111 U/L (46-116); Anion Gap 3.8 mmol/L (3-11); BUN 12 mg/dL (7-18); Bilirubin, Total 0.4 mg/dL (0.2-1.0); C-Reactive Protein 0.17 mg/dL (0.0-0.3); CO2 32.2 mmol/L (21.0-32.0); CREATININE 0.8 mg/dL (0.55-1.02); Calcium 9.2 mg/dL (8.5-10.1); Chloride 102 mmol/L (98-107); Glucose 83 mg/dL (74-106); Potassium 4.5 mmol/L (3.5-5.1); Sodium 138 mmol/L (136-145); Total Protein 7.3 g/dL (6.4-8.2)
== END 2021-08-13 04:15 | disposition home or self-care (01) ==
LOC: LOS 04:19
PROVIDERS: PCP Nurse Practitioner Family; Visit Provider Internal Medicine Rheumatology
DX: M32.9 Systemic lupus erythematosus, unspecified (principal); Z79.899 Other long term (current) drug therapy
CPT/HCPCS: 36415; 80053; 85025; 86140

== ENCOUNTER → 2021-09-22 00:57 | Outpatient (CLI) | payer OTHER, SELFPAY | PROVIDERS: PCP Nurse Practitioner Family; Visit Provider Nurse Practitioner Family ==

== ENCOUNTER 2022-01-09 00:45 | Outpatient (CLI) | payer MEDICARE, SELFPAY ==
[2022-01-09 12:59] LABS: Abs Immature Grans 0.02 10^3/uL (0.0-0.06); Absolute Basophil Count 0.06 10^3/uL (0.0-0.2); Absolute Eosinophil Count 0.18 10^3/uL (0.0-0.7); Absolute Lymphocyte Count 1.62 10^3/uL (1.2-3.4); Absolute Monocyte Count 0.44 10^3/uL (0.1-0.8); Basophils % 1.2; Eosinophils % 3.7; HCT 40.4 % (36.0-46.0); HGB 13.5 g/dL (11.2-15.7); Immature Grans % 0.4; Lymphocytes % 33.6; MCH 33.3 pg (27.0-33.0); MCHC 33.4 % (32.0-36.0); MCV 100 fL (80-95); MPV 10.4 fL (8.0-11.0); Monocytes % 9.1; Nucleated RBC 0.4 % (0.0-0.3); Platelet Count 222 10^3/uL (130-400); RBC 4.05 10^6/uL (3.93-5.22); RDW 15.7 % (11.7-14.6); RDW-SD 57.3 fL; WBC 4.82 10^3/uL (4.4-10.8)
[2022-01-09 13:23] LABS: ALT 20 U/L (14-59); AST 26 U/L (15-37); Albumin 3.4 g/dL (3.4-5.0); Alkaline Phosphatase 65 U/L (46-116); Anion Gap 6.3 mmol/L (3-11); BUN 25 mg/dL (7-18); Bilirubin, Total 0.3 mg/dL (0.2-1.0); C-Reactive Protein 0.25 mg/dL (0.0-0.3); CO2 32.7 mmol/L (21.0-32.0); Calcium 9.1 mg/dL (8.5-10.1); Chloride 100 mmol/L (98-107); Glucose 74 mg/dL (74-106); Potassium 3.6 mmol/L (3.5-5.1); Sodium 139 mmol/L (136-145); Total Protein 7.4 g/dL (6.4-8.2)
[2022-01-09 15:12] LABS: ALT 21 U/L (14-59); AST 26 U/L (15-37); Albumin 3.4 g/dL (3.4-5.0); Alkaline Phosphatase 64 U/L (46-116); Bilirubin, Direct 0.1 mg/dL (0.0-0.2); Bilirubin, Total 0.3 mg/dL (0.2-1.0); TSH (W/Ref FT4) 0.52 uIU/mL (0.36-3.74); Total Protein 7.5 g/dL (6.4-8.2)
[2022-01-12 09:15] LABS: IgG 1523 mg/dL (610-1,616)
[2022-01-12 12:08] LABS: Tissue Transglutaminase Ab IgA <1.2 U/mL
== END 2022-01-09 00:46 | disposition home or self-care (01) ==
LOC: LOS 00:45
PROVIDERS: Nurse Practitioner; PCP Nurse Practitioner Family; Visit Provider Internal Medicine Rheumatology
DX: M32.19 Other organ or system involvement in systemic lupus erythematosus (principal); R10.32 Left lower quadrant pain; R11.0 Nausea; R74.8 Abnormal levels of other serum enzymes; K63.89 Other specified diseases of intestine; R15.2 Fecal urgency
CPT/HCPCS: 36415; 80053; 80076; 82784; 83516; 84443; 85025; 86140

== ENCOUNTER 2022-02-12 12:55 | Outpatient (CLI) | payer MEDICARE, SELFPAY ==
[2022-02-12 14:24] LABS: Vitamin B12 1939 pg/mL (193-986)
[2022-02-12 14:26] LABS: Folate > 20.0 ng/mL (8.6-20.0)
[2022-02-16 12:02] LABS: IgA 336 mg/dL (85-499); Interpretation (See Note); Tissue Transglutaminase IgA <1.2 U/mL (<4.0)
== END 2022-02-12 12:56 | disposition home or self-care (01) ==
LOC: LBO 12:56
PROVIDERS: PCP Nurse Practitioner Family; Visit Provider Surgery
DX: F17.200 Nicotine dependence, unspecified, uncomplicated (principal); G43.009 Migraine without aura, not intractable, without status migrainosus; G89.29 Other chronic pain; J98.19 Other pulmonary collapse; K58.2 Mixed irritable bowel syndrome; K63.89 Other specified diseases of intestine; L93.0 Discoid lupus erythematosus; M41.20 Other idiopathic scoliosis, site unspecified; R06.00 Dyspnea, unspecified; R10.32 Left lower quadrant pain; R10.9 Unspecified abdominal pain; R11.0 Nausea; R11.10 Vomiting, unspecified; R63.4 Abnormal weight loss; R79.89 Other specified abnormal findings of blood chemistry
CPT/HCPCS: 36415; 82784; 83516; 99215; 99244; 82607; 82746

== ENCOUNTER 2022-02-17 09:22 | Day surgery (SDC) | payer MEDICARE, SELFPAY ==
--- NOTE | 2022-02-17 06:48 | W.PM.ENDDOP ---
Date of service: 02/17/22 Time of Service: 12: Endoscopy Report DATE OF PROCEDURE: 02/17/22 PRE-OP DIAGNOSIS: chronic abdominal pain POST-OP DIAGNOSIS: same (and gastritis/ duodenitis) PROCEDURE: 1. EGD with biopsies SURGEON: Madelyn Jo ANESTHESIA TYPE: General:No Airway ESTIMATED BLOOD LOSS: 5 PATHOLOGY: other (duodenal bx and gastric bx) COMPLICATIONS: Other (Patient developed extremly high BP's during the upper endoscopy. Colonoscopy not done) DISPOSITION: same day INDICATIONS: Ms Brito is a 61 year old female here for a colonoscopy and EGd at the request of GI at [facility] [place] [place]. Risks, benefits and complications have been reviewed. Complications include but are not limited to bleeding, pain, perforation, missed small lesion/polyp, sore throat, aspiration and adverse reaction to the medications. Questions were entertained and answered to their satisfaction and they wished to proceed. No guarantees were given or implied. PREP: Miralax/Dulcolax FINDINGS: mild to moderate inflammation of the duodenum and stomach. No ulcers PROCEDURE DESCRIPTION: After informed consent was obtained the patient was take to the procedure room and placed in a supine position. Monitors were applied and a time out was done. The patients name, date of , procedure type, allergies to medications and metal in their body was reviewed. A bite block was placed and the patient was sedated. Once sedated and comfortable the gastroscope was advanced through the oropharynx which was grossly normal into the esophagus. The proximal and mid-esophagus were normal. In the distal esophagus there was no inflammation noted. The scope was advanced into the stomach and through the pylorus into the 3rd portion of the duodenum. The 3rd and 2nd portion of the duodenum were normal, and the 1st portion of the duodenum was noted to have some mild inflammation. Biopsies were done. The scope was retracted back into the stomach. There was moderate inflammation noted in the antrum and body. Biopsies were done to rule out H. pylori. There were no ulcers. The scope was retro-flexed. The cardia and fundus were noted to be normal. There was no hiatal hernia noted. The scope was retracted back into the esophagus and biopsies were done of the GE junction to rule out Roth's. The Z line was regular. The GE junction was at 35 cm. During the Upper endoscopy the patient BP's readings were going up. She was given IV esmolol to bring it down whithout much success. The propofol was stopped and as we waited for the patient to wake up she started to posture. There was concern for a possible stroke due to the high BP's. She was given a dose of hydralazine which then did bring down her BP. I quickly discussed the case with Dr. Houston who recommended the patient be taken to the ER for a stat Brain CT. Once we got the patient to the ER she did start to wake up and act more appropriate. ER workup is pending at this time. Patient will need to have a colonoscopy done at [facility] or [facility]
--- NOTE | 2022-02-17 06:50 | W.PM.DSUDISC ---
Date of service: 02/17/22 Discharge Plan Disposition Patient Disposition: HOME Condition: Good Discharge Details Reason For Visit: LLLQ PAIN Attending Provider: Madelyn Jo Primary Care Provider: Alessio Soni Home Meds and New Rx's Prescriptions: No Action oxycodone-acetaminophen 5-325 mg tablet 1 tab PO TID MDD 3 tabs PRN (Reason: pain) Qty: 83 0RF methotrexate sodium 2.5 mg tablet 7.5 mg PO .wednesday lisinopril 10 mg tablet 10 mg PO DAILY Qty: 90 3RF lubiprostone [Amitiza] 8 mcg capsule 8 mcg PO DAILY Qty: 30 0RF polyethylene glycol 3350 17 gram/dose powder 238 g PO ONCE Qty: 238 0RF Rx Instructions: take per colonoscopy instructions bisacodyl [Dulcolax (bisacodyl)] 5 mg tablet,delayed release (DR/EC) 5 mg PO ONCE Qty: 4 0RF Rx Instructions: take per colonoscopy instructions (DME) Aerochamber MV Spacer See Rx Instructions .ROUTE .MEDSUPPLY Qty: 1 0RF Rx Instructions: As directed nitroglycerin 0.4 mg tablet, sublingual 0.4 mg sublingual Q5M PRN Rx Instructions: do not exceed 3 doses per episode aspirin [Adult Aspirin Regimen] 81 mg tablet,delayed release (DR/EC) 81 mg PO DAILY trazodone 50 mg tablet 50 mg PO QHS PRN (Reason: sleep) Qty: 90 3RF Vitamin B12 1,000 mg PO DAILY riboflavin (vitamin B2) [Vitamin B-2] 100 MG tablet 100 mg PO DAILY cholecalciferol (vitamin D3) [Vitamin D3] 1,000 UNIT capsule 1,000 unit PO DAILY naloxone [Narcan] 4 MG spray,non-aerosol 4 mg NS PRN Qty: 2 Rx Instructions: For use if patient found unconscious or lethargic. Can repeat x 1 folic acid 1 mg tablet 2 mg PO DAILY lidocaine [Lidoderm] 5 % adhesive patch,medicated 2 patch Transdermal DAILY PRNQty: 60 Rx Instructions: 5% PATCH hydroxychloroquine [Plaquenil] 200 mg tablet 200 mg PO DAILY Qty: 90 4RF Rx Instructions: BRAND NAME ONLY rizatriptan 10 mg tablet 10 mg PO Q2H MDD 30 mg PRN (Reason: migraine headache) Qty: 12 4RF Rx Instructions: 1 tab at onset of migraine. May repeat every 2 hours x 2 venlafaxine 75 mg tablet 75 mg PO DAILY Qty: 90 3RF atorvastatin [Lipitor] 40 mg tablet 40 mg PO DAILY Qty: 90 4RF metoprolol succinate 100 mg tablet extended release 24 hr 100 mg PO DAILY Qty: 90 3RF diazepam 5 mg tablet 5 mg PO QHS PRN (Reason: sleep) Qty: 90 3RF promethazine 12.5 mg tablet 25 mg PO Q6H PRN Qty: 30 2RF Rx Instructions: as needed for nausea Discharge Instructions Additional Instructions: Findings: Follow up: Please call if you develop: fevers >101.5 Nausea or Vomiting Abdominal pain that is not transient Rectal bleeding that is more then a tbsp A hard abdomen and inability to pass gas DAY SURGERY UNIT POST ENDOSCOPY INSTRUCTIONS Instructions for everyone who is given Anesthesia: For your safety, please do the following for the next 24 Hours: a. Do not drive or operate dangerous equipment b. Do not drink alcohol beverages or use any recreational drugs for the first 24 hours or while taking pain medications. The medications in your body may have a reaction that can be dangerous. c. Do not make any important decisions or sign any important papers 1. Generally there are no restrictions on your activity after a day or so has gone by, but you may feel a bit fatigued for a few days. 2. After you arrive home you may have a light meal and return to a normal diet as you can tolerate it without feeling sick to your stomach. 3. After surgery, you may feel pain or discomfort. This should be only transient, but if it persists please contact your doctor. 4. If there are any questions regarding the findings of your procedure, please feel free to contact your doctor. 6. If you are unable to contact your doctor with a problem, contact the hospital at [phone]. 7. Continue all your regular medications unless directed otherwise. I understand the above instructions and have no questions. Signature of Patient or Responsible Adult Escort Date/Time Name of Responsible Adult Escort Signature of Nurse Date/Time Activity:: Activity as Tolerated Diet:: As Tolerated
[2022-02-17] MEDS: Lactated Ringers 1,000 ML 80 ML IV (10:05)
[2022-02-17] MEDS: ceFAZolin 2 GM/50 ML BAG IVPB (10:10)
[2022-02-17 10:12] VITALS: BP 164/114; PULSE 111; RESP 16; TEMP 36.5; O2SAT 96
[2022-02-17 10:15] VITALS: BP 156/88; PULSE 91; RESP 15; O2SAT 97
--- NOTE | 2022-02-17 10:48 | STOM_PTH ---
PATIENT: Dorys Brito LOC: [facility] U#:[id number] AGE/SX: 61/F ROOM: RE02/17/[address]: Madelyn Jo MD : 1960 BED: DIS: 02/17/2022 SPEC #: [id number] RECD: 02/17/22 12:41 STATUS: ALEXANDER REMaria Del Carmen #: [id number] TOBY: 02/17/22 10:[address]: Madelyn Jo DEPT: Surgical Specimen RECD BY: Cecelia Mullins ENTERED: 02/17/22 12:43 SP TYPE: STOMACH OTHR DR: Alessio Soni, REFRACTORY SPECIALIST Tissues: 1 - BIOPSY BOWEL 2 - STOMACH BIOPSY 3 - ESOPHAGUS BIOPSY Procedures: GROSS AND MICRO LEVEL 4 Comments: [id number]
--- NOTE | 2022-02-17 12:00 | W.ANESPOSTOP ---
Postoperative Evaluation Date, Time and Location Date Performed: 02/17/22 Time Performed: 12:00 Patient Location: Emergency Department Vital Signs Most Recent Imported Vital Signs: Most Recent Vital Signs Temp Pulse Resp BP Pulse Ox 36.5 C 91 H 15 156/88 H 97 02/17/22 10:12 02/17/22 10:15 02/17/22 10:15 02/17/22 10:15 02/17/22 10:15 Pain Score Most Recent Pain Score: Most Recent Pain Score Pain Level 0 02/17/22 10:12 Assessment Mental Status: Awake (Alert & Oriented to Patient Baseline) Airway and Respiratory Function: Patent airway with normal (patient baseline) respiratory exam Cardiovascular Function: Hemodynamically Stable (Patients SVT and hypertensive crisis seem to be resolving. Transferred to ER for further workup. ) Hydration Status: Adequately Hydrated Nausea & Vomiting: No Nausea or Vomiting Pain: Pt. Denies Any Pain Peripheral Nerve Block: Patient did not receive a nerve block Postoperative Comments:: Discussed care with patient and updated her partner
[2022-02-17 14:08] VITALS: BMI 13.5
--- NOTE | 2022-02-17 14:08 | ANES.PREOP_ITS ---
General Info Date of Service Date Performed: 02/17/22 Height: 5 ft 5 in Weight: 36.8 kg Body Mass Index (BMI): 13.5 Surgical Procedure: Operation Date: 02/17/22 10:35 Proposed Procedure Side Surgeon p Colonoscopy/Gastroscopy Madelyn Jo MD Actual Procedure Side Surgeon p Colonoscopy/Gastroscopy Madelyn Jo MD Pre-Op Diagnosis Post-Op Diagnosis LLQ PAIN Gastritis and duodenitis Meds Allergies and Home Medications Allergies Allergy/AdvReac Type Severity Reaction Status Date / Time bupropion Allergy Intermediate Hives Verified 02/17/22 10:03 citalopram Allergy Intermediate Hives Verified 02/17/22 10:03 verapamil Allergy Intermediate Hives Verified 02/17/22 10:03 Sulfa (Sulfonamide AdvReac Intermediate Hives Verified 02/17/22 10:03 Antibiotics) Corticosteroids AdvReac Mild weird Verified 02/17/22 10:03 (Glucocorticoids) feeling Home Medication Medication Instructions Recorded Vitamin B12 1,000 mg PO DAILY 06/11/15 cholecalciferol (vitamin D3) 25 1,000 unit PO DAILY 12/10/15 mcg (1,000 unit) capsule (Vitamin D3) riboflavin (vitamin B2) 100 mg 100 mg PO DAILY 12/10/15 tablet (Vitamin B-2) naloxone 4 mg/actuation nasal 4 mg NS PRN #2 sprays 12/08/16 spray (Narcan) folic acid 1 mg tablet 2 mg PO DAILY 10/04/18 lidocaine 5 % topical patch 2 patch transdermal DAILY PRN #60 10/04/18 (Lidoderm) patches Plaquenil 200 mg tablet 200 mg PO DAILY #90 tabs 12/13/19 (hydroxychloroquine) inhalational spacing device #1 ea 02/27/20 (Aerochamber MV spacer) aspirin 81 mg tablet,delayed 81 mg PO DAILY 03/26/20 release (Adult Aspirin Regimen) nitroglycerin 0.4 mg sublingual 0.4 mg sublingual Q5M PRN 03/26/20 tablet rizatriptan 10 mg tablet 10 mg PO Q2H PRN migraine headache 05/05/21 #12 tabs venlafaxine 75 mg tablet 75 mg PO DAILY #90 tabs 05/05/21 trazodone 50 mg tablet 50 mg PO QHS PRN sleep #90 tabs 09/03/21 lisinopril 10 mg tablet 10 mg PO DAILY #90 tabs 11/11/21 metoprolol succinate 100 mg 100 mg PO DAILY #90 tabs 12/25/21 tablet,extended release 24 hr methotrexate sodium 2.5 mg tablet 7.5 mg PO .wednesday02/11/22 oxycodone-acetaminophen 5 mg-325 1 tab PO TID PRN pain #83 tabs 02/11/22 mg tablet diazepam 5 mg tablet 5 mg PO QHS PRN sleep #90 tabs 02/12/22 lubiprostone 8 mcg capsule 8 mcg PO DAILY #30 caps 02/12/22 (Amitiza) promethazine 12.5 mg tablet 25 mg PO Q6H PRN #30 tab-caps 02/12/22 atorvastatin 40 mg tablet (Lipitor) 40 mg PO HS 02/17/22 omeprazole 40 mg capsule,delayed 40 mg PO DAILY #30 caps 02/17/22 release Current Visit Medications: Current Medications Generic Name Dose Route Start Last Admin Trade Name Freq PRN Reason Stop Dose Admin Hyoscyamine Sulfate 0.125 mg 02/17/22 06:51 Hyoscyamine 0.125 Mg Sl/Oral/Chew SL DIRECTED PRN Ringer's Solution 1,000 mls @ 80 mls/hr 02/17/22 06:00 02/17/22 11:10 IV 02/17/22 23:59 80 mls/hr INFUSION BRYNN Infusion Cefazolin Sodium/Dextrose 2 gm in 50 mls @ 100 mls/hr 02/17/22 06:00 02/17/22 10:35 Ancef Duplex IVPB 02/17/22 23:59 Infused PREOP BRYNN Infusion IV Miscellaneous Supplies 1 each 02/17/22 06:00 Iv Access IV 02/17/22 23:59 DIRECTED BRYNN Ondansetron HCl 4 mg 02/17/22 06:51 Ondansetron 4 Mg/2 Ml Vial IVP Q4H PRN PRN Nausea / Vomiting Sodium Chloride 0 ml 02/17/22 06:00 Normal Saline Flush 10 Ml Syr IV 02/17/22 23:59 PRN PRN Sodium Chloride 0 ml 02/17/22 06:00 Normal Saline 10 Ml Vial IJ 02/17/22 23:59 DIRECTED PRN Sterile Water 0 ml 02/17/22 06:00 Water,Injection,Sterile 10 Ml Vial IJ 02/17/22 23:59 DIRECTED PRN PFSH Active Problems Active Problems: Problem Status Onset Code B12 deficiency anemia D51.9 Chronic pain syndrome 03/24/12 G89.4 Depressive disorder F32.9 Discoid lupus erythematosus L93.0 Fatigue R53.83 Idiopathic scoliosis M41.20 Irritable bowel syndrome with both constipation and diarrhea 12/08/16 K58.2 Lumbago 03/18/03 M54.5 Tobacco use disorder F17.200 Migraine G43.909 Insomnia G47.00 Abnormal weight loss R63.4 Dyspnea on exertion R06.00 CAD (coronary artery disease) I25.10 Right middle lobe syndrome J98.19 Lumbar disc herniation M51.26 Hypertension I10 Abdominal pain R10.9 Narcotic bowel syndrome K63.89, T40.601A Elevated LFTs R79.89 Chronic LLQ pain R10.32, G89.29 Chronic nausea R11.0 Chronic vomiting R11.10 Hx of idiopathic thrombocytopenic purpura Z86.2 Cachexia R64 Chronic diarrhea K52.9 Medical History Medical History (Updated 02/17/22 @ 10:01 by Lesly Shelby) Abnormal Pap smear of anus (03/18/07) + HPV NSTEMI (non-ST elevated myocardial infarction) 2020 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) Vaginal high risk HPV DNA test positive (03/18/07) Medical History Comments:: Surgical History Surgical History History of orthopedic surgery History of splenectomy SPIN DEVICE [place] Ananth, 1979; 2003 ananth placed; bone graft L4-5 Splenomegaly (~2000) ITP Status post coronary artery stent placement Tobacco Smoking/Tobacco Use Status: Current every day Tobacco Type: cigarettes Smoking cigarettes per day: 15 Years smoked: 30 Passive smoking exposure: Yes Second hand exposure: Yes Alcohol Alcohol Intake: current Alcohol intake frequency: holidays/special occasions only Alcohol type: wine Substance Use Substance use: Rarely Substance use type: marijuana Vital Signs and Lab Results Vital Signs Most Recent Vital Signs in EMR: Most Recent Vital Signs Temp Pulse Resp BP Pulse Ox 36.5 C 91 H 15 156/88 H 97 02/17/22 10:12 02/17/22 10:15 02/17/22 10:15 02/17/22 10:15 02/17/22 10:15 Lab Results Blood Type / Crossmatch: No Data to Display Complete Blood Count: White Blood Count 5.46 10^3/uL (4.4-10.8) 02/17/22 12:04 Red Blood Count 3.95 10^6/uL (3.93-5.22) 02/17/22 12:04 Hemoglobin 13.3 g/dL (11.2-15.7) 02/17/22 12:04 Hematocrit 39.1 % (36.0-46.0) 02/17/22 12:04 Platelet Count 257 10^3/uL (130-400) 02/17/22 12:04 Complete Metabolic Panel: Sodium 141 mmol/L (136-145) 02/17/22 12:04 Potassium 3.9 mmol/L (3.5-5.1) 02/17/22 12:04 Chloride 104 mmol/L (98-107) 02/17/22 12:04 Carbon Dioxide 31.1 mmol/L (21.0-32.0) 02/17/22 12:04 BUN 6 mg/dL (7-18) L 02/17/22 12:04 Creatinine 0.7 mg/dL (0.55-1.02) 02/17/22 12:04 Est GFR (CKD-EPI 2020) 97.72 (mL/min/1.73m2) 02/17/22 12:04 Magnesium 1.4 mg/dL (1.8-2.4) L 02/17/22 12:04 Calcium 9.2 mg/dL (8.5-10.1) 02/17/22 12:04 Albumin 3.4 g/dL (3.4-5.0) 02/17/22 12:04 Glucose 76 mg/dL (74-106) 02/17/22 12:04 Liver Function Panel: Alanine Aminotransferase (ALT/SGPT) 13 U/L (14-59) L 02/17/22 1 2:04 Aspartate Amino Transf (AST/SGOT) 27 U/L (15-37) 02/17/22 12:04 Coagulation Panel: No Data to Display Cardiac Panel: Troponin I 132 ng/L (<or=60) H* 02/17/22 Arterial Blood Gas: No Data to Display Venous Blood Gas: No Data to Display Pancreas Panel: No Data to Display Thyroid Panel: No Data to Display Infectious Disease: No Data to Display Blood Cultures: No Data to Display Toxicology Panel: No Data to Display Anesthesia Assessment and Plan Anesthesia History Personal History: No History of Anesthesia Complications Family History: No Family History of Anesthesia Complications Exercise Tolerance Exercise Tolerance: Metabolic Equivalents>4 Pertinent Negatives Pertinent Negatives: No Symptoms of GERD and No History of CVA/TIA Cardiac & Pulmonary Exam Cardiac Exam: Normal S1/S2 Heart Sounds Pulmonary Exam: Clear Bilateral Breath Sounds Implantable Cardiac Device Does patient have a Pacemaker or an ICD?: No Airway Exam Known Difficult Airway: No Mallampati Class: 2 Mouth Opening: Normal (> 3cm) Thyromental Distance: Greater than 3 cm Neck Range of Motion: Full ROM Neck Circumference: Normal Teeth Condition: Normal Dentition and Generalized Poor Dentition ASA Classification ASA Score: ASA 3 Emergency Case?: No NPO Status NPO Status: NPO Clears >2 hours, Solids >8 hours Anesthesia Plan Resuscitation Status: Full Code Anesthesia Technique: General Anesthesia Airway Planned: Natural Airway Monitors Used: Standard Monitors
== END 2022-02-17 09:23 | disposition home or self-care (01) ==
LOC: SUR 09:22
PROVIDERS: PCP Nurse Practitioner Family; Visit Provider Surgery
PROC: (CPT 43239; principal; 2022-02-17 10:30)
DX: R10.9 Unspecified abdominal pain (principal); K29.70 Gastritis, unspecified, without bleeding; K29.80 Duodenitis without bleeding; I10 Essential (primary) hypertension; Z53.8 Procedure and treatment not carried out for other reasons; K22.89 Other specified disease of esophagus
CPT/HCPCS: 43239; 36415; 80048; 80053; 87635; 88305; 93005; 93308; 96365; 96366; 96368; 96376; 99285; 70450; 71045; 83735; 83880; 84484; 85025; 85730; 93010; 93306; 99217; 99220; J0360; J0690; J2250

== ENCOUNTER 2022-02-17 11:13 | Observation (INO) | payer MEDICARE, SELFPAY ==
[2022-02-17] VITALS (52 sets, daily range): BP systolic 120–172; BP diastolic 70–111; PULSE 63–110; RESP 10–29; TEMP 36.3–37.6; O2SAT 93–100
--- NOTE | 2022-02-17 11:15 | DI.CT_ITS ---
Exam(s) CT HEAD WO EXAM: CT HEAD WO CLINICAL HISTORY: hypertensive, ?hemorrhage. TECHNIQUE: Imaging Protocol: Axial computed tomography images with coronal and sagittal reformatted images were created and reviewed COMPARISON: No exams were available for comparison FINDINGS: There are no skull fractures. There is no fluid in the visualized paranasal sinuses. There is no evidence of intracranial hemorrhage, mass effect, or shift of midline structures. There are no extra-axial fluid collections. The ventricles are not enlarged or shifted and there is no blo od within the ventricular system nor within the basal cisterns. Vertebral artery calcification of the skull base is noted, involving both vertebral arteries at the s kull base There is an area of prior infarction in the inferior aspect of the right cerebellar hemisphere. Left cerebellar hemisphere appears unremarkable. No obvious abnormality in the anil and midbrain. Small lacunar infarct in the left thalamus noted. Also in the right periventricular white. No hemorrhage s evident. IMPRESSION: 1. No evidence of acute intracranial hemorrhage, intra or extra-axial (as per request). 2. Multiple areas of prior infarction as described above in the right cerebellar hemisphere, left cayetano lamus and right periventricular white matter. Called by myself to ER physician RADIATION DOSE DELIVERED: Total DLP DATA REPOSITORY: All CT scans at this facility are submitted to the National Radiology Data Registry (NRDR) Dose Index Registry (DIR) with the [employer] (A[employer]). RADIATION OPTIMIZATION: All CT scans at this facility use at least one of these dose optimization te chniques: automated exposure control; mA and/or kV adjustment per patient size (includes targeted exa ms where dose is matched to clinical indication); or iterative reconstruction.
--- NOTE | 2022-02-17 11:15 | RT.EKG_ITS ---
APPROVED REPORT Exam: Resting ECG Reason for Exam: syncope Patient Location: E HR:93 bpm ECG Measurements Heart Rate 93 AXIS OK 147 P 79 QRSd 83 QRS 78 QT 372 T 262 QTc 464 Conclusion Sinus rhythm...normal P axis, V-rate 60- 99 Right atrial enlargement...P>0.25mV 2 lds or<-0.24mV aVR/aVL LVH with secondary repolarization abnormality...multi-LVH criteria, abnrm ST-T Probable anterior infarct, age indeterminate...Q >35mS, T neg, V2-V5
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
[2022-02-17] MEDS: Lisinopril 10 MG TAB PO (11:34)
[2022-02-17 12:19] LABS: Abs Immature Grans 0.01 10^3/uL (0.0-0.06); Absolute Basophil Count 0.04 10^3/uL (0.0-0.2); Absolute Eosinophil Count 0.02 10^3/uL (0.0-0.7); Absolute Lymphocyte Count 1.73 10^3/uL (1.2-3.4); Absolute Monocyte Count 0.39 10^3/uL (0.1-0.8); Absolute Neutrophil Count 3.27 10^3/uL (1.2-6.7); Basophils % 0.7; Eosinophils % 0.4; HCT 39.1 % (36.0-46.0); HGB 13.3 g/dL (11.2-15.7); Immature Grans % 0.2; Lymphocytes % 31.7; MCH 33.7 pg (27.0-33.0); MCV 99 fL (80-95); MPV 9.9 fL (8.0-11.0); Monocytes % 7.1; Neutrophils % 59.9; Platelet Count 257 10^3/uL (130-400); RBC 3.95 10^6/uL (3.93-5.22); RDW 15.5 % (11.7-14.6); RDW-SD 55.6 fL; WBC 5.46 10^3/uL (4.4-10.8)
[2022-02-17 12:36] LABS: ALT 13 U/L (14-59); AST 27 U/L (15-37); Albumin 3.4 g/dL (3.4-5.0); Alkaline Phosphatase 63 U/L (46-116); Anion Gap 5.9 mmol/L (3-11); BUN 6 mg/dL (7-18); Bilirubin, Total 0.4 mg/dL (0.2-1.0); CO2 31.1 mmol/L (21.0-32.0); CREATININE 0.7 mg/dL (0.55-1.02); Calcium 9.2 mg/dL (8.5-10.1); Chloride 104 mmol/L (98-107); Estimated GFR 97.72 (mL/min/1.73m2); Glucose 76 mg/dL (74-106); Magnesium 1.4 mg/dL (1.8-2.4); Potassium 3.9 mmol/L (3.5-5.1); Sodium 141 mmol/L (136-145); Total Protein 7.4 g/dL (6.4-8.2)
[2022-02-17 12:45] LABS: Troponin I 132 ng/L (<or=60)
--- NOTE | 2022-02-17 12:45 | DI.RAD_ITS ---
Exam(s) XR PORTABLE CHEST AP EXAM: XR PORTABLE CHEST AP CLINICAL HISTORY: hypertension. TECHNIQUE: 2D digital imaging was performed. COMPARISON: CR XR CHEST 2V PA LATERAL from 05/19/2021 FINDINGS: Single AP portable view. Chu rods again noted as are scoliosis an epidural leads for pain management. Heart size is upper normal. The mediastinum is not widened. Lungs are clear. No infiltrates nor obvious pleural effusions. IMPRESSION: No acute pulmonary findings on this single AP portable view of the chest. DATA REPOSITORY: RADIATION DOSE DELIVERED:
[2022-02-17] MEDS: Aspirin 325 MG TAB PO (12:51)
[2022-02-17] MEDS: MAGNESIUM SULFATE 2 GM/50 ML BAG IVPB (12:52)
[2022-02-17] MEDS: Rizatriptan 10 MG TAB PO (13:27)
[2022-02-17 14:19] LABS: PTT Activated 26.1 sec (21.0-27.5)
[2022-02-17 14:46] LABS: Troponin I 160 ng/L (<or=60)
[2022-02-17 14:53] LABS: Source Nasal/Nares
[2022-02-17 15:25] LABS: COVID-19 PCR Negative (Negative)
[2022-02-17] MEDS: Pantoprazole 40 MG TABCR PO (16:54)
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
--- NOTE | 2022-02-17 18:03 | CHAPLAIN ---
I had a brief visit with Dorys, introducing myself and explaining my role. Her was in the room with her.
--- NOTE | 2022-02-17 18:24 | W.POCUS ---
Pocus Exam Limited Cardiac Exam DATE OF EXAM: 02/17/22 TIME OF EXAM: 18:24 REASON FOR EXAM: Evaluation of LV function and Other (elevated troponin) indication: ELEVATED TROPONIN; EVALUATE LV function VISUALIZED STRUCTURES: four chambers, left atrium, left ventricle, LVOT, right atrium, right ventricle, aortic valve, mitral valve and Interventricular septum VIEW OBTAINED: Apical 4-Chamber, Parasternal long-axis, Parasternal short-axis and Subxiphoid PERTINENT FINDINGS/IMPRESSION: Other (LVH, hyperdynamic LV systolic function w/ near obliteration of LV cavity during systole) Hyperdynamic LV function, no regional wall motion abnormalities, mod. LVH, no significant MR, MS, AI or Exam complete
--- NOTE | 2022-02-17 19:00 | RT.EKG_ITS ---
APPROVED REPORT Exam: Resting ECG Reason for Exam: elevated troponin Patient Location: I HR:89 bpm ECG Measurements Heart Rate 89 AXIS MT 146 P 85 QRSd 90 QRS 84 QT 413 T -2 QTc 503 Conclusion Sinus rhythm...normal P axis, V-rate 50- 99 Right atrial enlargement...P>0.25mV 2 lds or<-0.24mV aVR/aVL LVH with secondary repolarization abnormality...multi-LVH criteria, abnrm ST-T Prolonged QT interval...QTc >500mS
[2022-02-17 19:08] LABS: Troponin I 158 ng/L (<or=60)
[2022-02-17] MEDS: Metoprolol CR 50 MG TABCR PO (19:42)
[2022-02-17] MEDS: Atorvastatin 40 MG TAB PO (20:48)
[2022-02-17] MEDS: diazePAM 5 MG TAB PO (20:49)
[2022-02-17] MEDS: oxyCODONE 5 mg/Acetaminophen 325 mg TAB 1 TAB PO (20:49)
[2022-02-17] MEDS: Hydroxychloroquine 200 MG TAB PO (20:49)
[2022-02-17] MEDS: traZODone 50 MG TAB PO (20:49)
[2022-02-17] MEDS: Venlafaxine 75 MG TAB PO (21:22)
[2022-02-17 23:39] LABS: Troponin I 135 ng/L (<or=60)
[2022-02-18] VITALS (55 sets, daily range): BP systolic 119–167; BP diastolic 66–92; PULSE 55–72; RESP 8–23; TEMP 36.2–36.5; O2SAT 95–97
[2022-02-18] MEDS: Docusate Sodium 100 MG CAP PO (07:47)
[2022-02-18] MEDS: Rizatriptan 10 MG TAB PO (07:47)
[2022-02-18] MEDS: Lisinopril 5 MG TAB (07:48)
[2022-02-18] MEDS: Cyanocobalamin 500 MCG TAB 1000 MCG PO (07:48)
[2022-02-18] MEDS: Cholecalciferol (Vitamin D3) 1,000 UNIT TAB 1000 UNITS PO (07:48)
[2022-02-18] MEDS: oxyCODONE 5 mg/Acetaminophen 325 mg TAB 1 TAB PO (07:48)
[2022-02-18] MEDS: Aspirin E.C. 81 MG TABEC PO (07:49)
[2022-02-18] MEDS: Metoprolol CR 100 MG TABCR PO (07:49)
[2022-02-18] MEDS: Pantoprazole 40 MG TABCR PO (07:49)
[2022-02-18] MEDS: Folic Acid 1 MG TAB 2 MG PO (07:49)
[2022-02-18 08:19] LABS: Troponin I 131 ng/L (<or=60)
[2022-02-18 08:20] LABS: BUN 14 mg/dL (7-18); CREATININE 0.9 mg/dL (0.55-1.02); Calcium 8.8 mg/dL (8.5-10.1); Chloride 101 mmol/L (98-107); Estimated GFR 72.28 (mL/min/1.73m2); Glucose 90 mg/dL (74-106); Magnesium 1.9 mg/dL (1.8-2.4); NT-proBNP 634 pg/mL (<300); Potassium 3.6 mmol/L (3.5-5.1); Sodium 138 mmol/L (136-145)
--- NOTE | 2022-02-18 12:33 | W.PM.DS.N ---
Date of service: 02/18/22 Time of Service: 12:33 DS: Diagnosis Discharge Diagnosis (1) Hypertensive emergency without congestive heart failure: Status: Resolved Asessment and Plan: Patient has known essential hypertension did not take her Toprol-XL or her lisinopril prior to her EGD and colonoscopy and developed hypertensive emergency during her EGD in which her preoperative blood pressure wes from 172/102 to as high as 250/172 with a heart rate of 137 and a rhythm that allegedly was SVT. Patient was treated with esmolol and then hydralazine before her blood pressure came down to 152/94. Patient was transferred from PACU to the emergency department where she had a work-up that included a noncontrast CT scan of her head that showed old lacunar infarcts. Patient was restarted on lisinopril and Toprol-XL and monitored overnight. She had serial EKGs and troponin levels. She had a mild troponin I leak that peaked at 160 ng/L. Echocardiogram was performed showed no LV wall motion abnormalities. She has normal left ventricular and right ventricular function with no significant valvular abnormalities. She was monitored overnight in the ICU and remained stable with no further hypertensive crisis. Throughout the rest of her hospital stay she had no focal neurologic symptoms other than her usual migraine headache which resolved with her Maxalt. She was discharged home in improved and stable condition with instructions to quit smoking and to take her blood pressure medications regularly she is advised to follow-up with her stock raiser as well as her primary care provider. (2) Elevated troponin I level: Status: Resolved Asessment and Plan: Secondary to demand ischemia. Because of her history of underlying coronary artery disease with previous RCA stent is recommended she discuss outpatient stress MPI with her stock raiser Dr. Sorenson. (3) CAD (coronary artery disease): Status: Chronic (4) Multiple lacunar infarcts: Status: Chronic Asessment and Plan: Noncontrast CT scan demonstrated old multiple lacunar infarcts involving right cerebellum hemisphere, left thalamus, right periventricular white matter. Further cerebrovascular work-up can be obtained as an outpatient but most importantly the patient is strongly advised that she needs to quit smoking immediately and to take her blood pressure medications faithfully and to monitor blood pressures regularly and if it is not well controlled then she needs to seek close follow-up with her stock raiser and her PCP. Discharge Plan Disposition Patient Disposition: HOME Condition: Good Discharge Details Reason For Visit: Hypertensive Urgency Admit Date/Time: 02/17/22 14:10 Admit Provider: Rodrigo Houston Attending Provider: Rodrigo Houston Primary Care Provider: Alessio Soni Hospital Course Hospital Course: 61-year-old female with history sent for hypertension treated with Toprol-XL and lisinopril, coronary artery disease with previous RCA stent in March 2020 whose had chronic abdominal pains and weight loss and was undergoing an EGD and colonoscopy on 02/17/2022. She had not taken her lisinopril or her Toprol XL prior to the procedure. Upon beginning the case she was hypertensive with a blood pressure 172/102. EGD was completed but prior to proceeding with colonoscopy procedure was terminated when she became very hypertensive with a blood pressure 250/172 and 221/170 associate with tachycardia with heart rate up to 137. Patient's blood pressure was treated with esmolol for the tachycardia and hydralazine for the blood pressure. Patient demonstrated posturing and Dr. Jo call me for advice I had recommended the hydralazine and transferred to the ER for stat CT of her head. Prior to the patient arriving the emergency department blood pressure had come down to 152/90 4 mm heart rate was down to 88 bpm at no time during the case did she have any hypoxemia. O2 saturation remained between 96 to 100% in the PACU her blood pressure was 153/79 with a heart rate of 97 respiratory rate 16 pulse oximetry 100%. Work-up included routine labs including troponin levels as well as serial EKGs. EKG in the emergency department demonstrated sinus rhythm rate of 93 bpm with evidence of LVH with secondary repolarization changes. Lack of R waves in anterior leads suspicious for previous anterior infarct. When compared to her previous ECG from 03/20/2020 patient had similar findings although her current ECG now had some ST depression and T wave inversion in V4 through V6. There is also some ST depression in the inferior leads II, III and aVF. CMP was unremarkable except for magnesium level 1.4. Troponin I level was elevated at 132 and peaked at 158 before declined down to 131. proBNP was modestly elevated at 634. CBC was normal. Nasal PCR for SARS-CoV-2 was negative. Imaging included a CT scan of the head without contrast that showed no evidence of acute intracranial hemorrhage but multiple areas of prior infarction following right cerebellar hemisphere left thalamus and right periventricular white matter. These all appear to be lacunar infarcts and appear to be old. Echocardiogram was performed and demonstrated normal left and right ventricular function with an LVEF of 60%. No hemodynamically significant valvular disease was present. When compared to prior echo from 03/22/2020 there have been no significant changes. Patient was treated emergency department with her home dose of lisinopril 10 mg and she was restarted on her Toprol-XL. Patient was monitored overnight she had no symptoms of chest pain or dyspnea and no acute neurologic symptoms. Patient was advised that she needs to quit smoking and she needs to take her blood pressure medications regularly. She and her spouse were advised that her CT scan of her head shows evidence of previous lacunar infarcts consistent with hypertension. She is advised to stay on aspirin and to remain on her atorvastatin. Further work-up for cerebrovascular disease can be obtained as an outpatient. Home Meds and New Rx's Prescriptions: Continued oxycodone-acetaminophen 5-325 mg tablet 1 tab PO TID MDD 3 tabs PRN (Reason: pain) Qty: 83 0RF methotrexate sodium 2.5 mg tablet 7.5 mg PO .wednesday lisinopril 10 mg tablet 10 mg PO DAILY Qty: 90 3RF lubiprostone [Amitiza] 8 mcg capsule 8 mcg PO DAILY Qty: 30 0RF (DME) Aerochamber MV Spacer See Rx Instructions .ROUTE .MEDSUPPLY Qty: 1 0RF Rx Instructions: As directed nitroglycerin 0.4 mg tablet, sublingual 0.4 mg sublingual Q5M PRN Rx Instructions: do not exceed 3 doses per episode aspirin [Adult Aspirin Regimen] 81 mg tablet,delayed release (DR/EC) 81 mg PO DAILY Vitamin B12 1,000 mg PO DAILY riboflavin (vitamin B2) [Vitamin B-2] 100 MG tablet 100 mg PO DAILY cholecalciferol (vitamin D3) [Vitamin D3] 1,000 UNIT capsule 1,000 unit PO DAILY naloxone [Narcan] 4 MG spray,non-aerosol 4 mg NS PRN Qty: 2 Rx Instructions: For use if patient found unconscious or lethargic. Can repeat x 1 folic acid 1 mg tablet 2 mg PO DAILY lidocaine [Lidoderm] 5 % adhesive patch,medicated 2 patch Transdermal DAILY PRNQty: 60 Rx Instructions: 5% PATCH rizatriptan 10 mg tablet 10 mg PO Q2H MDD 30 mg PRN (Reason: migraine headache) Qty: 12 4RF Rx Instructions: 1 tab at onset of migraine. May repeat every 2 hours x 2 metoprolol succinate 100 mg tablet extended release 24 hr 100 mg PO DAILY Qty: 90 3RF diazepam 5 mg tablet 5 mg PO QHS PRN (Reason: sleep) Qty: 90 3RF promethazine 12.5 mg tablet 25 mg PO Q6H PRN Qty: 30 2RF Rx Instructions: as needed for nausea atorvastatin [Lipitor] 40 mg tablet 40 mg PO HS venlafaxine 75 mg tablet 75 mg PO HS trazodone 50 mg tablet 50 mg PO QHS omeprazole 40 mg capsule,delayed release(DR/EC) 40 mg PO HS hydroxychloroquine [Plaquenil] 200 mg tablet 200 mg PO HS Rx Instructions: BRAND NAME ONLY Discharge Instructions Instructions: How to Stop Smoking (DC), DASH Eating Plan (DC), Hypertensive Crisis (DC), Hypertension (DC) Additional Instructions: Please be sure to take your blood pressure medications on a regular basis. Begin the omprazole (the acid reducing medication) prescribed by Dr. Jo. Please call Dr. Sorenson's office to set follow up on your blood pressure and to discuss getting a follow up stress treadmill MPI study to evaluate your coronary artery disease. Call Dr. Jo's office to set follow up on your gastritis. Follow up with PCP Alessio Clark PHARMACY BENEFITS COORDINATOR on : Wednesday02/20/2022 at 13:00 ( 1 PM )at [facility]/ Cardiology with Dr. Sorenson on 02/19/2022 at 10:[phone]/Surgery with Dr. Hussein 02/24/2022 at 11:15 [phone]. Referrals: Alessio Soni NP [Primary Care Provider] - Madison Sorenson MD [ [facility] STAFF PHYSICIAN] - Madelyn Jo MD [ [facility] STAFF PHYSICIAN] - Activity:: Activity as Tolerated Equipment/Supplies:: No Equipment Needed Diet:: Low Sodium Discharge Orders Discharge Orders: Discharge Order (Routine); Ordered 02/18/22 Ordered By: Rodrigo Houston Discharge Data Discharge Date/Time-TO BE ENTERED AT DEPARTURE: 02/18/22 13:30 DS: Summary Summary Time spent discussing smoking cessation with patient: 3 to 10 minutes Time Spent with Patient providing and/or coordinating discharge services: Less than 30 minutes Specific discharge activities: Interview/exam of patient; review of discharge instructions, completion of prescriptions/discharge instructions; discussion w/ nursing and CM; documentation of hospital visit Status at Discharge Functional status at discharge: independent ambulation Overall status at discharge: patient is back to baseline Mental Status: mental status grossly normal Speech and Movement: speech and movement normal Mood: congruent mood Affect: normal affect Exam Narrative Exam Narrative: Dorys is lying in bed talking w/ her . She has no CP or dyspnea. She did have a migraine headache this morning that improved with with her Maxalt Lungs: clear Heart: regular but bradycardic in the 50's; no gallop, no murmur heard this morning Abdomen: scaphoid, soft, nontender Extremities: no edema Neuro exam grossly intact no focal motor or sensory deficits no facial asymmetry no dysarthric speech. Psych Mental Status: mental status grossly normal Speech and Movement: speech and movement normal Mood: congruent mood Affect: normal affect DS: Data Vitals/I&O Vitals and I&O: Vital Signs Temperature 36.2 C L 02/18/22 04:00 Temperature Source Temporal Artery Scan 02/18/22 04:00 Pulse 59 L 02/18/22 06:00 Pulse 62 02/18/22 06:01 Respiratory Rate 19 02/18/22 06:01 Respiratory Effort Non-Labored 02/18/22 04:00 Respiratory Depth Normal 02/18/22 04:00 Respiratory Pattern Normal 02/18/22 04:00 Blood Pressure 143/83 H 02/18/22 06:00 Blood Pressure Mean 98 02/18/22 06:00 Blood Pressure Position Right Lateral 02/18/22 04:00 Pulse Oximetry 95 02/18/22 04:00 Respiratory End-tidal CO2 41 02/17/22 12:00 Oxygen Delivery Method Room Air 02/18/22 04:00 Oxygen Flow Rate 0 02/18/22 04:00 Pain Level 7 02/18/22 07:48 Comment 02/17/22 11:18 Intake & Output 02/17/22 02/18/22 02/18/22 23:59 11:59 23:59 Intake Total 78.167 / 78.167 0 / 0 Balance 78.167 / 78.167 0 / 0 Weight 36.9 kg 39.3 kg Intake: IV 78.167 / 78.167 Oral 0 / 0 Other: Urine Color Yellow Yellow Urine Appearance Clear Clear Urine Odor Normal Normal Comment unable to measure unable to measure Data Completed and Pending Labs on day of discharge: Labs from last 24 hours 02/18/22 02/18/22 02/17/22 07:35 07:35 23:07 APTT Sodium 138 Potassium 3.6 Chloride 101 Carbon Dioxide 35.0 H Anion Gap 2.0 L BUN 14 Creatinine 0.9 Est GFR (CKD-EPI 2020) 72.28 Glucose 90 Calcium 8.8 Magnesium 1.9 Total Bilirubin AST ALT Alkaline Phosphatase Troponin I 131 H* 135 H* NT-Pro-B Natriuret Pep 634 H Total Protein Albumin COVID-19 Source SARS-CoV-2 (PCR) 02/17/22 02/17/22 02/17/22 21:00 19:45 18:00 APTT Cancelled Sodium Potassium Chloride Carbon Dioxide Anion Gap BUN Creatinine Est GFR (CKD-EPI 2020) Glucose Calcium Magnesium Total Bilirubin AST ALT Alkaline Phosphatase Troponin I Cancelled 158 H* NT-Pro-B Natriuret Pep Total Protein Albumin COVID-19 Source SARS-CoV-2 (PCR) 02/17/22 02/17/22 02/17/22 14:50 14:15 13:45 APTT 26.1 Sodium Potassium Chloride Carbon Dioxide Anion Gap BUN Creatinine Est GFR (CKD-EPI 2020) Glucose Calcium Magnesium Total Bilirubin AST ALT Alkaline Phosphatase Troponin I 160 H* NT-Pro-B Natriuret Pep Total Protein Albumin COVID-19 Source Nasal/Nares SARS-CoV-2 (PCR) Negative 02/17/22 12:04 APTT Sodium 141 Potassium 3.9 Chloride 104 Carbon Dioxide 31.1 Anion Gap 5.9 BUN 6 L Creatinine 0.7 Est GFR (CKD-EPI 2020) 97.72 Glucose 76 Calcium 9.2 Magnesium 1.4 L Total Bilirubin 0.4 AST 27 ALT 13 L Alkaline Phosphatase 63 Troponin I 132 H* NT-Pro-B Natriuret Pep Total Protein 7.4 Albumin 3.4 COVID-19 Source SARS-CoV-2 (PCR) PFSH All Active Problems (Updated 02/19/22 @ 07:56 by Rodrigo Houston MD) Multiple lacunar infarcts (Chronic) B12 deficiency anemia (Chronic) Chronic pain syndrome (Chronic 03/24/12) 10/24/13; narcotic contract expires 10/24/16 Depressive disorder (Chronic) Discoid lupus erythematosus (Chronic) Fatigue (Chronic) Idiopathic scoliosis (Chronic) S/P [place] Ananth placed 1979 Irritable bowel syndrome with both constipation and diarrhea (Chronic 12/08/16) Lumbago (Chronic 03/18/03) L4-5 Ananth placed w/ bone graft Tobacco use disorder (Chronic) Current as of 09/07 Migraine (Chronic) Insomnia (Chronic) Abnormal weight loss (Chronic) Dyspnea on exertion (Acute) CAD (coronary artery disease) (Chronic) 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) Hypertension (Chronic) Abdominal pain (Acute) Narcotic bowel syndrome (Acute) Elevated LFTs (Acute) Chronic LLQ pain (Acute) Chronic nausea (Acute) Chronic vomiting (Acute) Hx of idiopathic thrombocytopenic purpura (Acute) Cachexia (Acute) Chronic diarrhea (Acute) Medical History Abnormal Pap smear of anus (03/18/07) + HPV NSTEMI (non-ST elevated myocardial infarction) 2020 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 Father No problems noted. Brother No problems noted. Son No problems noted. Family History Heart disease Hyperlipidemia Neoplasm Social History Smoking/Tobacco Use Status: Current every day Tobacco Type: cigarettes Years smoked: 30 Tobacco: How many years used: 46 Quit status: considering quitting Second Hand Exposure: Yes Smoking risk assessment performed?: Yes Alcohol Intake: current Alcohol Intake frequency: holidays/special occasions only Alcohol type: wine Drug use: Rarely Substance use type: marijuana Household members: spouse Housing: house Communication Needs: None Do you need help understanding health information?: Rarely Pets and animals: Yes Pets and animals: dog(s) and bird(s) Sexually active: No Do you think of yourself as: straight/heterosexual Current gender identity: female What is your relationship status?: How often do you talk on the phone with friends or family?: three or more times per week How often do you get together with friends or relatives?: once per week How often do you attend confucianism or zoroastrianism services?: 1-3 times per year Do you belong to any clubs or organized social groups?: no Panel score (0-1 are the most socially isolated patients): 2 What type of physical activity do you participate in: none Toshia/Orthodox: Jehovah'S Witness In current or past relationships, have you been: threatened Do you feel safe at home: Yes Do you feel safe in your relationship?: Yes Additional Social history: past relatiopnships
== END 2022-02-18 13:30 | disposition home or self-care (01) ==
LOC: ER 14:23 → ICU 15:15
PROVIDERS: Admitting Provider Internal Medicine; Emergency Provider Emergency Medicine; PCP Nurse Practitioner Family; Visit Provider Internal Medicine
DX: I16.1 Hypertensive emergency (principal); I25.10 Atherosclerotic heart disease of native coronary artery without angina pectoris; Z79.899 Other long term (current) drug therapy; Z20.822 Contact with and (suspected) exposure to COVID-19; Z95.5 Presence of coronary angioplasty implant and graft; F17.210 Nicotine dependence, cigarettes, uncomplicated; G89.29 Other chronic pain; R10.9 Unspecified abdominal pain; R63.4 Abnormal weight loss; Z68.1 Body mass index [BMI] 19.9 or less, adult; D51.9 Vitamin B12 deficiency anemia, unspecified; F32.A Depression, unspecified; L93.0 Discoid lupus erythematosus; R53.82 Chronic fatigue, unspecified; K58.2 Mixed irritable bowel syndrome; G43.909 Migraine, unspecified, not intractable, without status migrainosus; G47.00 Insomnia, unspecified; I10 Essential (primary) hypertension; I25.2 Old myocardial infarction; Z86.73 Personal history of transient ischemic attack (TIA), and cerebral infarction without residual deficits; I47.1 Supraventricular tachycardia; D69.3 Immune thrombocytopenic purpura
CPT/HCPCS: 36415; 80048; 80053; 87635; 93005; 93308; 96365; 96366; 96368; 96376; 99285; J1650; 70450; 71045; 83735; 83880; 84484; 85025; 85730; 93010; 93306; 99217; 99220

== ENCOUNTER → 2022-02-19 10:37 | Outpatient (BNVA) | payer MEDICARE, SELFPAY | PROVIDERS: PCP Nurse Practitioner Family; Referring Provider Nurse Practitioner Family; Visit Provider Internal Medicine Cardiovascular Disease | DX: I25.10 Atherosclerotic heart disease of native coronary artery without angina pectoris (principal); I10 Essential (primary) hypertension; R06.00 Dyspnea, unspecified | CPT/HCPCS: 99214 ==

== ENCOUNTER 2022-02-20 00:29 | Outpatient (CLI) | payer MEDICARE, SELFPAY ==
--- NOTE | 2022-02-20 07:00 | DI.US_ITS ---
Exam(s) US ABDOMEN EXAM: US ABDOMEN CLINICAL HISTORY: persistent elevated LFT's,chronic vomiting,abd pain,nausea,abnl wt loss TECHNIQUE: Ultrasound of complete upper abdomen performed using standard protocol. COMPARISON: CT CT CHEST PE ABD PELVIS W from 03/20/2020 FINDINGS: There is no ascites evident. LIVER: There are no hepatic lesions evident nor obvious dilatation of intrahepatic ducts. GALLBLADDER/BILIARY: There are no gallstones. No gallbladder wall edema nor pericholecystic fluid. The common hepatic duct isnot dilated, measuring 3-4mm at the level of shirley hepatis. PANCREAS: There is no evidence of pancreatic mass nor dilatation of the pancreatic duct. SPLEEN: Spleen is surgically absent. KIDNEYS:Right kidney unremarkable. There are 2 hyperechoic foci in the mid-lower pole of the left kid jacek measuring 6 and 2 millimeters. These are probably nonobstructive calculi. No cortical cyst or gurdeep id renal masses evident. ABDOMINAL AORTA: There is abdominal aortic aneurysm with maximum external diameter 3.8 cm. IVC: Normal diameter where visualized. IMPRESSION: 1. No evidence of cholelithiasis nor dilatation of the biliary tree. 2. Abdominal aortic aneurysm which measures 3.8 cm maximum diameter. Appropriate follow-up recommend ed. 3. Two small nonobstructive calculi in the left kidney measuring 2 and 6 millimeters. No hydronephro sis. No other focal renal findings. Previous splenectomy. No abnormal fluid collection in this region. DATA REPOSITORY:
== END 2022-02-20 00:49 ==
LOC: DI 00:30
PROVIDERS: PCP Nurse Practitioner Family; Visit Provider Surgery
DX: G89.4 Chronic pain syndrome; I25.10 Atherosclerotic heart disease of native coronary artery without angina pectoris; J98.19 Other pulmonary collapse; K58.2 Mixed irritable bowel syndrome; K63.89 Other specified diseases of intestine; R10.32 Left lower quadrant pain; R63.4 Abnormal weight loss; N20.0 Calculus of kidney; I71.40 Abdominal aortic aneurysm, without rupture, unspecified
CPT/HCPCS: 76700

== ENCOUNTER 2022-02-23 01:29 | Outpatient (CLI) | payer MEDICARE, SELFPAY ==
--- NOTE | 2022-02-23 08:00 | DI.NM_ITS ---
APPROVED REPORT Exam: Pharmacologic Patient Location: Out-Patient Room/Bed: Stress Nurse: Consuelo Pink RN Ordering Provider:NATALIA MARIA, Contact Number: [phone] BMI: 13.97 Baseline Rhythm: Sinus Rhythm Comment: P wave inversions in aVR, aVL, V1, V2: T wave inversions/abnormalities in II, V4, V5 Indications: CAD, Dyspnea on exertion Medical History Medical History: chronic pain syndrome, depression, tobacco abuse, WALKER, CAD, HTN, NSTEMI Cardiac Medications: omeprazole, nitro SL, metoprolol succinate, lisinopril, atorvastatin, aspirin Allergies: sulfa, corticosteroids, bupropion, citalopram, verapamil Cardiac Risk Factors: +family history, HTN, HLD, CVD, +smoker Previous Cardiac Procedures: Hx of NSTEMI and stent Pretest Chest Pain Characteristics: None Exercise History: Sedentary Physical Disabilities: chronic pain syndrome, idiopathic scoliosis w/ spinal device Lung Sounds: clear Heart Sounds: regular Stress Test Details Test: Pharmacologic stress testing performed using 0.4 mg of regadenoson per 5 mL given IV over 10 s econds. Reason for pharmacologic stress test: physical limitation. Nuclear Acquisition: Rest Tc-99m/Stress Tc-99m 1 day Rest Isotope: Tc-99m Sestamibi. Dose: 9.0 ml Date: 02/23/2022 Injection Time: 11:30 am Stress Isotope: Tc-99m Sestamibi. Dose: 30.0 ml Date: 02/23/2022 Injection Time: 13:30 HR Resting HR Supine: 61 bpm Max Heart Rate (APMHR): 158.230591 bpm Resting HR Standin bpm Target HR (85% APMHR): 134.196585 bpm Max HR Achieved: 89 bpm % of APMHR: 56.33 Recovery HR: 75 bpm BP Resting BP Supine: 150/90 mmHg Resting BP Standin/78 mmHg Max BP: 172/90 mmHg Recovery BP: 170/90 mmHg ECG Resting ECG: Sinus Rhythm, Abnormal EKG Comment: P wave inversions in aVR, aVL, V1, V2: T wave inversions/abnormalities in II, V4, V5 Stress ECG: Sinus Rhythm ST Change: No significant ST segment changes noted Comment: T wave inversions deepened s/p lexiscan injection, P wave inversions in aVR, aVL, V1, V2: T wave inversions/abnormalities in II, V4, V5 Recovery ECG: Sinus Rhythm Recovery ST Change: No significant ST segment changes noted Recovery Arrhythmia: PAC Comment: T wave inversions nearly back to baseline, P wave inversions in aVR, aVL, V1, V2: T wave inv ersions/abnormalities in II, V4, V5 Clinical Stress Symptoms: Chest pain, shortness of breath Rate Pressure Product: [id number] Stress ECG Conclusion 1. Resting electrocardiogram shows left ventricular hypertrophy with repolarization abnormalities 2. Patient underwent testing using pharmacologic stress with regadenoson 3. Peak heart rate achieved was 56% of maximal predicted for age 4. The electrocardiographic portion of the test was nondiagnostic 5. See MPI report Stress Test Summary STAGE Time (mins) Speed (mph) Grade (%) HR BP SpO2 SYMPTOMS METS Supine 61 150/90 Standing 67 128/78 1 3 1.7 10 83 4.5 1 min post Lexiscan injection 88 172/90 shortness of breath, chest pain 9/10 3 min post Lexiscan injection 86 164/90 chest pain 4/10 6 min post Lexiscan injection 82 170/90 chest pain 2/10 9 min post Lexiscan injection 75 170/90 Chest pain resolved 0/10, slight headache Patient wanted to attempt to get her heart rate up naturally so a Mil protocol was attempted. Natali chappell was tired within 1 minute of exercise on Mil protocol and heart rate was not accelerating well, in addition the 12 lead EKG picture was showing a lot of artifact that was not clearing despite attem pts to adjust leads.Patient was transitioned to a walking lexiscan but within less than 1 minute of w alking at a slow pace artifact continued and EKG continued to be difficult to read. Patient was trans itioned to a laying lexiscan injection. She tolerated this well, experiencing chest pain that resolve d within 8 minutes of injection. MPI Conclusion Myocardial perfusion is normal. There is no ischemia or evidence of prior infarction EF 70%, normal wall motion Radiologist Interpretation Radiologist Interpretation by: Dandy Reese MD Interpretation Date/Time: 02/24/2022 16:59:45
[2022-02-23] MEDS: Regadenoson 0.4 MG/5 ML SYR IVP (14:19)
== END 2022-02-23 01:49 ==
PROVIDERS: PCP Nurse Practitioner Family; Visit Provider Internal Medicine Cardiovascular Disease
DX: I25.10 Atherosclerotic heart disease of native coronary artery without angina pectoris (principal); R06.00 Dyspnea, unspecified
CPT/HCPCS: 78452; 93016; 93018; 93017; J2785

== ENCOUNTER → 2022-02-24 11:17 | Outpatient (BNVA) | payer MEDICARE, SELFPAY | PROVIDERS: PCP Nurse Practitioner Family; Referring Provider Nurse Practitioner Family; Visit Provider Surgery | DX: K63.89 Other specified diseases of intestine (principal) | CPT/HCPCS: 99212 ==

== ENCOUNTER → 2022-04-07 11:11 | Outpatient (BNVA) | payer MEDICARE, SELFPAY | PROVIDERS: PCP Nurse Practitioner Family; Referring Provider Nurse Practitioner Family; Visit Provider Surgery | DX: K63.89 Other specified diseases of intestine (principal); Z79.82 Long term (current) use of aspirin | CPT/HCPCS: 99213 ==

== ENCOUNTER 2022-07-02 13:27 | Outpatient (CLI) | payer MEDICARE, SELFPAY ==
[2022-07-02 13:36] LABS: Abs Immature Grans 0.01 10^3/uL (0.0-0.06); Absolute Basophil Count 0.07 10^3/uL (0.0-0.2); Absolute Eosinophil Count 0.05 10^3/uL (0.0-0.7); Absolute Lymphocyte Count 2.64 10^3/uL (1.2-3.4); Absolute Monocyte Count 0.38 10^3/uL (0.1-0.8); Absolute Neutrophil Count 3.02 10^3/uL (1.2-6.7); Basophils % 1.1; Eosinophils % 0.8; HCT 42.6 % (36.0-46.0); HGB 13.9 g/dL (11.2-15.7); Immature Grans % 0.2; Lymphocytes % 42.8; MCH 31.3 pg (27.0-33.0); MCHC 32.6 % (32.0-36.0); MCV 96 fL (80-95); MPV 9.9 fL (8.0-11.0); Monocytes % 6.2; Neutrophils % 48.9; Platelet Count 280 10^3/uL (130-400); RBC 4.44 10^6/uL (3.93-5.22); RDW 14.6 % (11.7-14.6); RDW-SD 51.7 fL; WBC 6.17 10^3/uL (4.4-10.8)
[2022-07-02 14:38] LABS: ALT 24 U/L (14-59); AST 27 U/L (15-37); Albumin 3.7 g/dL (3.4-5.0); Alkaline Phosphatase 74 U/L (46-116); BUN 13 mg/dL (7-18); Bilirubin, Total 0.6 mg/dL (0.2-1.0); C-Reactive Protein 0.12 mg/dL (0.0-0.3); CREATININE 1.1 mg/dL (0.55-1.02); Calcium 9.3 mg/dL (8.5-10.1); Chloride 98 mmol/L (98-107); Estimated GFR 56.81 (mL/min/1.73m2); Glucose 92 mg/dL (74-106); Potassium 3.7 mmol/L (3.5-5.1); Sodium 136 mmol/L (136-145); Total Protein 8.1 g/dL (6.4-8.2)
== END 2022-07-02 13:28 | disposition home or self-care (01) ==
LOC: LBO 13:28
PROVIDERS: PCP Nurse Practitioner Family; Visit Provider Internal Medicine Rheumatology
DX: M32.19 Other organ or system involvement in systemic lupus erythematosus (principal); Z79.899 Other long term (current) drug therapy; I25.10 Atherosclerotic heart disease of native coronary artery without angina pectoris; I10 Essential (primary) hypertension; Z95.5 Presence of coronary angioplasty implant and graft
CPT/HCPCS: 36415; 80053; 85025; 86140; 99213

== ENCOUNTER 2023-02-18 02:52 | Outpatient (CLI) | payer MEDICARE, SELFPAY ==
[2023-02-18 15:37] LABS: Abs Immature Grans 0.02 10^3/uL (0.0-0.06); Absolute Basophil Count 0.05 10^3/uL (0.0-0.2); Absolute Eosinophil Count 0.04 10^3/uL (0.0-0.7); Absolute Monocyte Count 0.42 10^3/uL (0.1-0.8); Absolute Neutrophil Count 2.87 10^3/uL (1.2-6.7); Basophils % 0.8; Eosinophils % 0.7; HCT 39.5 % (36.0-46.0); Immature Grans % 0.3; Lymphocytes % 44.3; MCHC 32.9 % (32.0-36.0); MCV 94 fL (80-95); MPV 9.7 fL (8.0-11.0); Monocytes % 6.9; Platelet Count 260 10^3/uL (130-400); RBC 4.19 10^6/uL (3.93-5.22); RDW-SD 54.7 fL
[2023-02-18 16:15] LABS: ALT 19 U/L (14-59); AST 29 U/L (15-37); Albumin 3.7 g/dL (3.4-5.0); Alkaline Phosphatase 89 U/L (46-116); Anion Gap 4.1 mmol/L (3-11); BUN 9 mg/dL (7-18); Bilirubin, Total 0.3 mg/dL (0.2-1.0); CO2 31.9 mmol/L (21.0-32.0); CREATININE 0.9 mg/dL (0.55-1.02); Calcium 9.8 mg/dL (8.5-10.1); Chloride 99 mmol/L (98-107); Estimated GFR 71.83 (mL/min/1.73m2); Glucose 96 mg/dL (74-106); Sodium 135 mmol/L (136-145); Total Protein 7.7 g/dL (6.4-8.2)
== END 2023-02-18 02:53 | disposition home or self-care (01) ==
LOC: LBO 02:52
PROVIDERS: PCP Nurse Practitioner Family; Visit Provider Internal Medicine Rheumatology
DX: Z79.899 Other long term (current) drug therapy (principal); M32.9 Systemic lupus erythematosus, unspecified
CPT/HCPCS: 36415; 80053; 85025; 86140

== ENCOUNTER → 2023-05-06 01:39 | Outpatient (CLI) | payer MEDICARE, SELFPAY ==
--- NOTE | 2023-05-06 08:00 | DI.RAD_ITS ---
Exam(s) XR CHEST 2V PA LATERAL EXAM: XR CHEST 2V PA LATERAL CLINICAL HISTORY: worsening congestion/cough after antibiotic therapy,r09.89 TECHNIQUE: 2D digital imaging was performed. COMPARISON: CR XR CHEST 2V PA LATERAL from 02/28/2020 CR XR CHEST 2V PA LATERAL from 05/19/2021 CR XR PORTABLE CHEST AP from 02/17/2022 CT,NM,TMT NM MPI REST STRESS GRP from 02/23/2022 FINDINGS: HEART: Normal size. Aorta: Not dilated. PULMONARY VASCULATURE: Normal. LUNGS: Question right inferior hilar infiltrate versus overlying structures. The lungs are otherwise clear. PLEURAL SPACE: No pleural effusion or pneumothorax. BONE:Prominent dextro rotoscoliosis. Ananth again noted in thoracic spine. Spinal stimulator device. Soft tissues: Unremarkable. IMPRESSION: Question right inferior hilar infiltrate versus overlying structures. DATA REPOSITORY: RADIATION DOSE DELIVERED:
== END ==
PROVIDERS: PCP Nurse Practitioner Family; Visit Provider Nurse Practitioner Family
DX: R09.89 Other specified symptoms and signs involving the circulatory and respiratory systems (principal)
CPT/HCPCS: 71046

== ENCOUNTER 2023-06-29 04:29 | Outpatient (CLI) | payer OTHER, SELFPAY ==
[2023-06-29 12:47] LABS: Absolute Basophil Count 0.03 10^3/uL (0.0-0.2); Absolute Eosinophil Count 0.07 10^3/uL (0.0-0.7); Absolute Lymphocyte Count 1.33 10^3/uL (1.2-3.4); Absolute Monocyte Count 0.32 10^3/uL (0.1-0.8); Absolute Neutrophil Count 2.43 10^3/uL (1.2-6.7); Basophils % 0.7; Eosinophils % 1.7; HCT 39.4 % (36.0-46.0); HGB 13.3 g/dL (11.2-15.7); Lymphocytes % 31.8; MCH 32.4 pg (27.0-33.0); MCHC 33.8 % (32.0-36.0); MCV 96 fL (80-95); MPV 10.1 fL (8.0-11.0); Monocytes % 7.7; Neutrophils % 58.1; Platelet Count 317 10^3/uL (130-400); RBC 4.11 10^6/uL (3.93-5.22); RDW 16.6 % (11.7-14.6); RDW-SD 58.4 fL; WBC 4.18 10^3/uL (4.4-10.8)
[2023-06-29 13:03] LABS: ALT 19 U/L (14-59); AST 29 U/L (15-37); Albumin 3.5 g/dL (3.4-5.0); Alkaline Phosphatase 65 U/L (46-116); Anion Gap 9.6 mmol/L (3-11); BUN 10 mg/dL (7-18); Bilirubin, Total 0.3 mg/dL (0.2-1.0); C-Reactive Protein < 0.50 mg/dL (<or=0.5); CO2 31.4 mmol/L (21.0-32.0); CREATININE 0.9 mg/dL (0.55-1.02); Chloride 103 mmol/L (98-107); Estimated GFR 71.83 (mL/min/1.73m2); Glucose 103 mg/dL (74-106); Potassium 3.1 mmol/L (3.5-5.1); Sodium 144 mmol/L (136-145); Total Protein 7.7 g/dL (6.4-8.2)
== END 2023-06-29 04:30 | disposition home or self-care (01) ==
LOC: LOS 04:29
PROVIDERS: PCP Nurse Practitioner Family; Visit Provider Internal Medicine Rheumatology
DX: M32.9 Systemic lupus erythematosus, unspecified (principal); Z79.899 Other long term (current) drug therapy
CPT/HCPCS: 36415; 80053; 85025; 86140

== ENCOUNTER 2023-07-23 09:46 | Outpatient (CLI) | payer OTHER, SELFPAY ==
--- NOTE | 2023-07-23 09:45 | RT.EKG_ITS ---
APPROVED REPORT Exam: Resting ECG Reason for Exam: Follow up EKG Needed Patient Location: O HR:87 bpm ECG Measurements Heart Rate 87 AXIS VA 147 P 94 QRSd 102 QRS 96 QT 361 T -28 QTc 435 Conclusion Sinus rhythm...normal P axis, V-rate 50- 99 Anterior infarct, old...Q >40mS, abnormal ST-T, V2-V5 LVH with repolarization abnormalities
== END 2023-07-23 09:47 | disposition home or self-care (01) ==
LOC: DI.CARD 09:50
PROVIDERS: PCP Nurse Practitioner Family; Visit Provider Internal Medicine Cardiovascular Disease
DX: R53.83 Other fatigue (principal); I21.4 Non-ST elevation (NSTEMI) myocardial infarction; R06.00 Dyspnea, unspecified
CPT/HCPCS: 93010

== ENCOUNTER → 2023-07-23 09:46 | Outpatient (BNVA) | payer OTHER, SELFPAY | PROVIDERS: PCP Nurse Practitioner Family; Referring Provider Nurse Practitioner Family; Visit Provider Internal Medicine Cardiovascular Disease | DX: I25.2 Old myocardial infarction (principal); I42.2 Other hypertrophic cardiomyopathy; I25.10 Atherosclerotic heart disease of native coronary artery without angina pectoris; I10 Essential (primary) hypertension; R53.83 Other fatigue | CPT/HCPCS: 93005; 99213 ==

== ENCOUNTER → 2023-08-18 02:40 | Outpatient (CLI) | payer OTHER, SELFPAY ==
[2023-08-18] MEDS: Barium Sulfate 2% W/V-Berry Smoothie 450 ML BTL PO (11:08)
[2023-08-18] MEDS: Barium Sulfate 2% W/V-Creamy Vanilla Smoothie 450 ML BTL PO (11:09)
[2023-08-18 11:44] LABS: Absolute Basophil Count 0.04 10^3/uL (0.0-0.2); Absolute Eosinophil Count 0.03 10^3/uL (0.0-0.7); Absolute Lymphocyte Count 1.75 10^3/uL (1.2-3.4); Absolute Monocyte Count 0.29 10^3/uL (0.1-0.8); Absolute Neutrophil Count 3.45 10^3/uL (1.2-6.7); Basophils % 0.7 %; Eosinophils % 0.5 %; HCT 43.5 % (36.0-46.0); HGB 14.2 g/dL (11.2-15.7); Lymphocytes % 31.5 %; MCH 31.8 pg (27.0-33.0); MCHC 32.6 % (32.0-36.0); MCV 97 fL (80-95); MPV 9.2 fL (8.0-11.0); Monocytes % 5.2 %; Neutrophils % 62.1 %; Platelet Count 302 10^3/uL (130-400); RBC 4.47 10^6/uL (3.93-5.22); RDW 14.6 % (11.7-14.6); WBC 5.56 10^3/uL (4.4-10.8)
[2023-08-18 12:00] LABS: ALT 18 U/L (14-59); AST 22 U/L (15-37); Albumin 3.9 g/dL (3.4-5.0); Alkaline Phosphatase 78 U/L (46-116); Anion Gap 8.5 mmol/L (3-11); BUN 12 mg/dL (7-18); Bilirubin, Total 0.4 mg/dL (0.2-1.0); CO2 30.5 mmol/L (21.0-32.0); CREATININE 0.8 mg/dL (0.55-1.02); Calcium 9.6 mg/dL (8.5-10.1); Chloride 102 mmol/L (98-107); Estimated GFR 82.74 (mL/min/1.73m2); Glucose 83 mg/dL (74-106); Potassium 4.4 mmol/L (3.5-5.1); Sodium 141 mmol/L (136-145); Total Protein 8.7 g/dL (6.4-8.2)
[2023-08-18 12:02] LABS: C-Reactive Protein < 0.50 mg/dL (<or=0.5)
[2023-08-18] MEDS: Normal Saline - Diluent 50 ML VIAL IJ (13:57)
[2023-08-18] MEDS: Omnipaque 350 MG/ML 500 ML BTL-Imaging package 100 ML IJ (13:58)
--- NOTE | 2023-08-18 14:09 | DI.CT_ITS ---
Exam(s) CT ABDOMEN PELVIS W EXAM: CT ABDOMEN PELVIS W CLINICAL HISTORY: ABNL COLONOSCOPY,R93.3,SIGMOID DIVERTICULOSIS,K57.30,COLONIC STRICTURE,. TECHNIQUE: Imaging Protocol: Axial computed tomography images with coronal and sagittal reformatted images were created and reviewed CONTRAST MATERIAL: Intravenous: Omnipaque-350 100cc Oral: Yes. Oral contrast was also administered for bowel opacification. COMPARISON: CT CT CHEST PE ABD PELVIS W from 03/20/2020 FINDINGS: VISUALIZED LUNG BASES: There is a 4 millimeter subpleural nodule in the left lower lobe posterior bas al segment, unchanged from previous.. Scoliosis and spinal hardware again noted as well as stimulato r. ABDOMEN: There is no ascites. LIVER: There are no focal hepatic lesions evident. No dilated intrahepatic ducts. GALLBLADDER/BILIARY: No obvious gallbladder pathology. CBD is not dilated. PANCREAS: No evidence of pancreatic mass nor dilatation of the pancreatic duct. SPLEEN: Spleen again noted be surgically absent. In ADRENALS: There are no significant adrenal masses. KIDNEYS:There is cysts again noted in both kidneys. The largest cyst in the right kidney measures 2 cm. Largest cyst in the left kidney measures 1.5 cm. There are no solid renal masses. There is a c alculus in the left kidney again noted measuring 4 millimeters, nonobstructive and unchanged position . No hydronephrosis nor hydroureter.. ABDOMINAL AORTA: In the uppermost images of this study the descending thoracic aorta behind the heart is enlarged with diameter of 3 point 1 cm, slightly larger than previous. In the abdomen the aorta is again noted be very atherosclerotic and there is an abdominal aortic aneurysm with maximum diamete r 4.5 cm, increased in size from the CT scan of March 2020 where it previously measured 2.7 cm. T here is significant atherosclerotic disease of the iliac arteries noted without aneurysmal dilatation . LYMPH NODES:There is no retroperitoneal nor paraaortic adenopathy. ABDOMINAL WALL: No evidence of significant anterior abdominal wall nor inguinal hernia. GI: No evidence of small-bowel obstruction. The oral contrast has reached the colon. There is signi ficant circumferential thickening of the wall of the rectosigmoid, similar to previous either related to chronic muscular hyperplasia/hypertrophy of the wall of the rectosigmoid or colitis. Cannot excl ude neoplasm at this level. PELVIS: GI: No evidence of appendicitis. LYMPH NODES: There is no intrapelvic nor inguinal adenopathy. REPRODUCTIVE: Uterus is atrophic or surgically absent. No obvious abnormal adnexal masses. URINARY BLADDER: No calculi nor obvious masses evident OSSEOUS: Fusion hardware posteriorly at L5-S1 level. Also multilevel thoracolumbar Chu rods w hich extend down to L2 level. No compression fractures. No listhesis. IMPRESSION: 1. There is significant long length transmural thickening of the wall of the rectosigmoid, slightly f urther progressed when compared to CT scan of March 2020. Either related to colitis or muscular h ypertrophy; cannot exclude neoplasm. 2. Abdominal aortic aneurysm which has increased in size from the March 2020 study, previously mikaela suring 2.7 cm and presently measuring 4.5 cm. On the uppermost images of this abdominal study the pa rtially visualized thoracic aorta is also increased in size, as described above. 3. Spleen is again noted be surgically absent. 4. No bowel obstruction, free air, nor abscess. RADIATION DOSE DELIVERED: 424.29mGy.cm Total DLP DATA REPOSITORY: All CT scans at this facility are submitted to the National Radiology Data Registry (NRDR) Dose Index Registry (DIR) with the [employer] (ACR). RADIATION OPTIMIZATION: All CT scans at this facility use at least one of these dose optimization te chniques: automated exposure control; mA and/or kV adjustment per patient size (includes targeted exa ms where dose is matched to clinical indication); or iterative reconstruction.
== END ==
PROVIDERS: Internal Medicine Rheumatology; PCP Nurse Practitioner Family; Visit Provider Student in an Organized Health Care Education/Training Program
DX: I71.40 Abdominal aortic aneurysm, without rupture, unspecified (principal)
CPT/HCPCS: 80053; 74177; 85025; 86140

== ENCOUNTER 2023-10-26 04:41 | Outpatient (CLI) | payer OTHER, SELFPAY ==
[2023-10-26 12:21] LABS: Abs Immature Grans 0.01 10^3/uL (0.0-0.06); Absolute Basophil Count 0.05 10^3/uL (0.0-0.2); Absolute Eosinophil Count 0.16 10^3/uL (0.0-0.7); Absolute Lymphocyte Count 1.78 10^3/uL (1.2-3.4); Absolute Monocyte Count 0.35 10^3/uL (0.1-0.8); Basophils % 1.1 %; Eosinophils % 3.4 %; HCT 41.1 % (36.0-46.0); HGB 13.6 g/dL (11.2-15.7); Immature Grans % 0.2 %; Lymphocytes % 37.5 %; MCH 31.7 pg (27.0-33.0); MCHC 33.1 % (32.0-36.0); MCV 96 fL (80-95); MPV 10.2 fL (8.0-11.0); Monocytes % 7.4 %; Neutrophils % 50.4 %; Platelet Count 270 10^3/uL (130-400); RBC 4.29 10^6/uL (3.93-5.22); RDW-SD 55.9 fL; WBC 4.75 10^3/uL (4.4-10.8)
[2023-10-26 12:32] LABS: Hemoglobin A1C 5.6 % (<5.7)
[2023-10-26 12:33] LABS: ALT 19 U/L (14-59); AST 19 U/L (15-37); Albumin 3.6 g/dL (3.4-5.0); Alkaline Phosphatase 72 U/L (46-116); Anion Gap 8.6 mmol/L (3-11); BUN 14 mg/dL (7-18); Bilirubin, Total 0.49 mg/dL (0.2-1.0); CO2 30.4 mmol/L (21.0-32.0); CREATININE 0.8 mg/dL (0.55-1.02); Calcium 9.5 mg/dL (8.5-10.1); Chloride 103 mmol/L (98-107); Estimated GFR 82.74 (mL/min/1.73m2); Glucose 93 mg/dL (74-106); Potassium 3.6 mmol/L (3.5-5.1); Sodium 142 mmol/L (136-145); Total Protein 7.8 g/dL (6.4-8.2)
[2023-10-26 12:36] LABS: C-Reactive Protein < 0.50 mg/dL (<or=0.5)
[2023-10-26 12:44] LABS: Calculated LDL 95 mg/dL (<100); Cholesterol 164 mg/dL (<200); HDL Cholesterol 50 mg/dL (40-60); TSH (W/Ref FT4) 2.13 uIU/mL (0.36-3.74); Triglyceride 97 mg/dL (<150)
== END 2023-10-26 04:42 | disposition home or self-care (01) ==
LOC: LOS 04:41
PROVIDERS: PCP Nurse Practitioner Family; Visit Provider Internal Medicine Rheumatology
DX: Z79.899 Other long term (current) drug therapy; M32.9 Systemic lupus erythematosus, unspecified
CPT/HCPCS: 36415; 80053; 80061; 83036; 84132; 84443; 85025; 86140

== ENCOUNTER 2024-05-02 08:33 | Outpatient (CLI) | payer SELFPAY ==
--- NOTE | 2024-05-02 08:30 | RT.EKG_ITS ---
APPROVED REPORT Exam: Resting ECG Reason for Exam: CAD Patient Location: O HR:78 bpm ECG Measurements Heart Rate 78 AXIS PA 152 P 86 QRSd 95 QRS 85 QT 420 T 73 QTc 479 Conclusion Sinus rhythm...normal P axis, V-rate 50- 99 Borderline right axis deviation...QRS axis ( 81, 90) Possible old anteroseptal infarct
== END 2024-05-02 08:34 | disposition home or self-care (01) ==
LOC: DI.CARD 08:34
PROVIDERS: PCP Nurse Practitioner Family; Visit Provider Internal Medicine Cardiovascular Disease
DX: I25.10 Atherosclerotic heart disease of native coronary artery without angina pectoris; Z01.818 Encounter for other preprocedural examination
CPT/HCPCS: 93010

== ENCOUNTER → 2024-05-02 13:34 | Outpatient (BNVA) | payer MEDICARE, SELFPAY | PROVIDERS: PCP Nurse Practitioner Family; Referring Provider Nurse Practitioner Family; Visit Provider Internal Medicine Cardiovascular Disease | DX: R94.31 Abnormal electrocardiogram [ECG] [EKG] (principal); I25.10 Atherosclerotic heart disease of native coronary artery without angina pectoris | CPT/HCPCS: 93005; 99213 ==

== ENCOUNTER 2024-11-23 03:09 | Outpatient (CLI) | payer MEDICARE, SELFPAY ==
--- NOTE | 2024-11-23 | DI.CT_ITS ---
Exam(s) CT ABDOMEN PELVIS W EXAM: CT ABDOMEN PELVIS W CLINICAL HISTORY: Lt-sided and epigastric abd pain, R10.84, s/p sigmoid colectomy, ? postsurg. TECHNIQUE: Imaging Protocol: Axial computed tomography images with coronal and sagittal reformatted images were created and reviewed CONTRAST MATERIAL: Intravenous: Omnipaque-350 75cc Oral: Yes. Oral contrast also administered for bowel opacification. COMPARISON: CT CT ABDOMEN PELVIS W from 08/18/2023 FINDINGS: VISUALIZED LUNG BASES: There is a noncalcified subpleural nodule in the posterior basal segment of the left lower lobe which measures 6 mm, larger than previous (previously measured 4 mm). Therefore this may be significant nodule. ABDOMEN: GI: The administered oral contrast has reached the left side of the colon but has not yet reached the sigmoid anastomosis level. In addition, there is some circumferential thickening of the wall of a short segment of the sigmoid but significantly less impressive than was evident on the 08/18/2023 study. Nevertheless, the oral contrast has not passed through this region. Diameter of the large bowel loops above this level are minimally prominent there is no obvious extravasation at this level. No free air. No abscess evident. LIVER: There are no focal hepatic lesions evident. No dilated intrahepatic ducts. GALLBLADDER/BILIARY: No obvious gallbladder pathology. CBD is not dilated. PANCREAS: No evidence of pancreatic mass nor dilatation of the pancreatic duct. SPLEEN: Spleen is not seen and is probably surgically absent. ADRENALS: There are no significant adrenal masses. KIDNEYS:Bilateral benign kidney cysts are again noted, the largest located in the upper pole the left kidney and measures 1.8 cm. The largest cyst in the right kidney measures 1.6 cm. These do not require further imaging. There are no solid renal masses. There is a single small calculus in each kidney measuring 3 mm, nonobstructive. These were previously present. No hydronephrosis nor hydroureter on either side.. ABDOMINAL AORTA: There is a fusiform abdominal aortic aneurysm with abundant mural thrombus. Maximum thickness is 4.6 cm, unchanged. There is atherosclerotic involvement of the iliac arteries but no aneurysmal dilatation. LYMPH NODES:There is no retroperitoneal nor paraaortic adenopathy. ABDOMINAL WALL: No evidence of significant anterior abdominal wall nor inguinal hernia. PELVIS: GI: The appendix is difficult to isolate a separate structure. There are no obvious signs of appendicitis.No evidence of sigmoid diverticulitis. LYMPH NODES: There is no intrapelvic nor inguinal adenopathy. REPRODUCTIVE: Uterus is atrophic or surgically absent. There are no abnormal adnexal masses. URINARY BLADDER: No calculi nor obvious masses evident OSSEOUS: Scoliosis. There is some posterior fusion hardware at L5-S1 level.. There is also a Hcu zita higher up which exhibits lowest aspect at L2 level. The superior aspect of the Chu zita is beyond the field of view of this study. IMPRESSION: 1. Compared to the prior CT scan of 08/18/2023 there has been interval partial sigmoid resection. There is some circumferential thickening of the wall of the colon at the level of the sigmoid anastomosis in the oral contrast has not progressed through this region at time of image acquisition. The diameter of the large bowel loops above this level is moderately prominent and there is significant mount of fecal material in the colon above this level. Requires colonoscopy. Diameter of small bowel loops are upper normal. 2. There is a 6 millimeter nodule in the left lung base which was previously 4 mm. Correlation with the past medical history of the sigmoid and other. This may possibly be a metastatic lung nodule the left lung base. There are no pleural effusions. 3. Bilateral nonobstructive nephrolithiasis. 4. There is a fusiform abdominal aortic aneurysm with abundant mural thrombus and exhibiting maximum external diameter 4.6 cm, basically unchanged from August 2023. Fusion hardware in the lower lumbar spine as well as Chu zita higher up. RADIATION DOSE DELIVERED: 176.83mGy.cm Total DLP DATA REPOSITORY: All CT scans at this facility are submitted to the National Radiology Data Registry (NRDR) Dose Index Registry (DIR) with the [employer] (ACR). RADIATION OPTIMIZATION: All CT scans at this facility use at least one of these dose optimization techniques: automated exposure control; mA and/or kV adjustment per patient size (includes targeted exams where dose is matched to clinical indication); or iterative reconstruction.
[2024-11-23] MEDS: Barium Sulfate 2% W/V-Berry Smoothie 450 ML BTL PO (11:44)
[2024-11-23] MEDS: Barium Sulfate 2% W/V-Creamy Vanilla Smoothie 450 ML BTL PO (11:45)
[2024-11-23 12:01] LABS: Abs Immature Grans 0.01 10^3/uL (0.0-0.06); HCT 26.8 % (36.0-46.0); HGB 7.8 g/dL (11.2-15.7); Immature Grans % 0.2 %; MCH 20.9 pg (27.0-33.0); MCHC 29.1 % (32.0-36.0); MCV 72 fL (80-95); MPV 9.4 fL (8.0-11.0); Platelet Count 381 10^3/uL (130-400); RBC 3.73 10^6/uL (3.93-5.22); RDW 16.8 % (11.7-14.6); RDW-SD 42.5 fL; WBC 4.39 10^3/uL (4.4-10.8)
[2024-11-23 12:19] LABS: ALT 20 U/L (14-59); AST 26 U/L (15-37); Albumin 3.7 g/dL (3.4-5.0); Alkaline Phosphatase 97 U/L (46-116); Anion Gap 7.1 mmol/L (3-11); BUN 13 mg/dL (7-18); Bilirubin, Total 0.4 mg/dL (0.2-1.0); CO2 30.9 mmol/L (21.0-32.0); Calcium 9.1 mg/dL (8.5-10.1); Chloride 101 mmol/L (98-107); Estimated GFR 70.95 (mL/min/1.73m2); Glucose 107 mg/dL (74-106); Potassium 3.8 mmol/L (3.5-5.1); Sodium 139 mmol/L (136-145); Total Protein 8.7 g/dL (6.4-8.2)
[2024-11-23 12:21] LABS: C-Reactive Protein < 0.50 mg/dL (<or=0.5)
[2024-11-23 12:40] LABS: Acanthocytes 1+; Anisocytosis 1+; Hypochromasia 2+; Microcytosis 2+
[2024-11-23 12:41] LABS: Poikilocytes 1+; Target Cells 2+
[2024-11-23] MEDS: Normal Saline Flush 10 ML SYR IVP (14:08)
[2024-11-23] MEDS: Normal Saline - Diluent 50 ML VIAL IJ (14:08)
[2024-11-23] MEDS: Omnipaque 350 MG/ML 100 ML BTL 75 ML IJ (14:09)
== END 2024-11-23 03:29 ==
PROVIDERS: PCP Nurse Practitioner Family; Visit Provider Nurse Practitioner Family
DX: M32.0 Drug-induced systemic lupus erythematosus (principal)
CPT/HCPCS: 80053; 74177; 85025; 86140; J3490

== ENCOUNTER 2024-12-05 08:07 | Outpatient (CLI) | payer MEDICARE, SELFPAY | END 2024-12-05 08:08 | disposition home or self-care (01) | LOC: DI.CARD 08:07 | PROVIDERS: PCP Nurse Practitioner Family; Visit Provider Internal Medicine Cardiovascular Disease | DX: R06.00 Dyspnea, unspecified (principal); I25.10 Atherosclerotic heart disease of native coronary artery without angina pectoris | CPT/HCPCS: 93010 ==

== ENCOUNTER 2024-12-07 07:53 | Outpatient (CLI) | payer MEDICARE, SELFPAY ==
--- NOTE | 2024-12-07 07:45 | RT.EKG_ITS ---
APPROVED REPORT Exam: Resting ECG Reason for Exam: cad Patient Location: O HR:91 bpm ECG Measurements Heart Rate 91 AXIS ME 152 P 87 QRSd 101 QRS 87 QT 398 T 44 QTc 490 Conclusion Sinus rhythm...normal P axis, V-rate 50- 99 Left ventricular hypertrophy with repolarization abnormalities Possible old anteroseptal infarct
== END 2024-12-07 07:54 | disposition home or self-care (01) ==
LOC: DI.CARD 07:54
PROVIDERS: PCP Nurse Practitioner Family; Visit Provider Internal Medicine Cardiovascular Disease
DX: I25.10 Atherosclerotic heart disease of native coronary artery without angina pectoris (principal); I51.7 Cardiomegaly
CPT/HCPCS: 93010

== ENCOUNTER → 2024-12-07 10:19 | Outpatient (BNVA) | payer MEDICARE, SELFPAY | PROVIDERS: PCP Nurse Practitioner Family; Referring Provider Nurse Practitioner Family; Visit Provider Internal Medicine Cardiovascular Disease | DX: I25.10 Atherosclerotic heart disease of native coronary artery without angina pectoris (principal); Z95.5 Presence of coronary angioplasty implant and graft | CPT/HCPCS: 99213; 93005 ==

== ENCOUNTER → 2025-01-04 14:55 | Outpatient (BNVA) | payer MEDICARE, SELFPAY | PROVIDERS: PCP Nurse Practitioner Family; Referring Provider Nurse Practitioner Family; Visit Provider Internal Medicine Pulmonary Disease | DX: R91.1 Solitary pulmonary nodule (principal); Z23 Encounter for immunization; R06.00 Dyspnea, unspecified; F17.210 Nicotine dependence, cigarettes, uncomplicated | CPT/HCPCS: 90471; 90684; 99215 ==

== ENCOUNTER 2025-02-13 09:48 | Outpatient (CLI) | payer MEDICARE, SELFPAY ==
--- NOTE | 2025-02-13 09:45 | DI.CT_ITS ---
Exam(s) CT CHEST WO EXAM: CT CHEST WO CLINICAL HISTORY: re-evaluate pulmonary nodule,r91.1. TECHNIQUE: Imaging protocol: Axial computed tomography images were obtained and coronal and sagittal reformatted images were created and reviewed. Lung Computer Aided Detection (CAD) was utilized. COMPARISON: CT CT CHEST PE ABD PELVIS W from 03/20/[address] ABDOMEN PELVIS W from 08/18/[address] ABDOMEN PELVIS W from 11/23/2024 FINDINGS: Tracheobronchial tree: Patent where visualized. No bronchiectasis is present. Pulmonary parenchyma: There is no change in the 6 mm nodule in the medial basilar segment of the left lower lobe. (Series 2, image 133). There are emphysematous changes seen in the lungs. There are no focal consolidating infiltrates present. There is scarring in the lung apices. Mediastinum and Amada: No dominant adenopathy or fluid collection. The esophagus is unremarkable. Thyroid gland: Unremarkable. Pleura: No effusion or pneumothorax. Heart: The heart is not dilated. Coronary artery calcification is present. No pericardial effusion. Aorta: The ascending thoracic aorta measures 3.5 x 3.2 cm. The descending thoracic aorta measures 4.1 x 4.0 cm above the aortic hiatus. This is new compared to the examination from 03/20/2020. There is atherosclerotic calcification present. Upper abdomen: There is a infrarenal abdominal aortic aneurysm measuring 5.0 x 4.0 cm. This is grossly unchanged compared to the examination from 11/23/2024. Using similar measuring techniques, the aorta measured 5.0 x 4.2 cm on the examination from 11/23/2024. There is nephrolithiasis present. There are renal cysts again seen. No follow-up is recommended. Lymph nodes: Within normal limits. Soft tissues: Unremarkable. Bones:Within normal limits for the patient's age. There is again seen posterior spinal surgery. There is a right convex thoracic scoliosis. IMPRESSION: 1. Stable 6 mm left lower lobe pulmonary nodule. For solitary solid noncalcified nodules measuring 6???8 mm in patients at high risk, an initial follow-up examination is recommended at 6???12 months and again at 18???24 months (grade 1B: strong recommendation, moderate quality evidence). (Ava et al., 2017) Solitary noncalcified solid nodules measuring 6???8 mm in patients with low clinical risk are recommended to undergo initial follow-up at 6???12 months depending on size, morphology, and patient preference (grade 1C: strong recommendation, low- or [id number] evidence). (Ava et al., 2017) 2. Descending thoracic aortic aneurysm measuring 4.1 x 4.0 cm. 3. Infrarenal abdominal aortic aneurysm measuring 5.0 x 4.0 cm. RADIATION DOSE DELIVERED: 132.34mGy.cm Total DLP 132.34mGy.cm Total DLP DATA REPOSITORY: All CT scans at this facility are submitted to the National Radiology Data Registry (NRDR) Dose Index Registry (DIR) with the [employer] (ACR). RADIATION OPTIMIZATION: All CT scans at this facility use at least one of these dose optimization techniques: automated exposure control; mA and/or kV adjustment per patient size (includes targeted exams where dose is matched to clinical indication); or iterative reconstruction.
== END 2025-02-13 10:08 ==
LOC: DI 09:48
PROVIDERS: PCP Nurse Practitioner Family; Visit Provider Internal Medicine Pulmonary Disease
DX: R91.1 Solitary pulmonary nodule (principal)
CPT/HCPCS: 71250

== ENCOUNTER 2025-03-06 03:20 | Outpatient (CLI) | payer MEDICARE, SELFPAY ==
[2025-03-06] MEDS: Inhaler, Assist Device 1 EACH MC (12:06)
[2025-03-06] MEDS: Levalbuterol HFA 15 GM INH 4 PUFF IH (12:06)
--- NOTE | 2025-03-08 08:32 | W.PFT ---
Date of service: 03/06/25 Time of Service: 11:09 Pulmonary Function Test Result Indications: Dyspnea on exertion Impression 1. Good patient effort was noted. ATS standards for reproducibility were met. 2. Spirometry showed a slightly reduced FEV1:FVC ratio, relative to predicted, and a mild reduction in the mid-flows. Could be seen with mild obstruction or be a normal variant. 3. Following the administration of a bronchodilator there was not a significant response 4. TLC was normal. No evidence of restrictive lung disease 5. DLCO was 45%, consistent with a severe defect in alveolar gas exchange
== END 2025-03-06 03:21 | disposition home or self-care (01) ==
LOC: RT 03:20
PROVIDERS: PCP Nurse Practitioner Family; Visit Provider Internal Medicine Pulmonary Disease
DX: R06.09 Other forms of dyspnea (principal)
CPT/HCPCS: 94060; 94726; 94729

== ENCOUNTER → 2025-03-08 11:00 | Outpatient (BNVA) | payer MEDICARE, SELFPAY | PROVIDERS: PCP Nurse Practitioner Family; Referring Provider Nurse Practitioner Family; Visit Provider Internal Medicine Pulmonary Disease | DX: J44.9 Chronic obstructive pulmonary disease, unspecified (principal); R06.00 Dyspnea, unspecified; R91.1 Solitary pulmonary nodule; F17.210 Nicotine dependence, cigarettes, uncomplicated | CPT/HCPCS: 99214; 00123 ==